=== PATIENT | male | born 1955 | race Caucasian/White ===

== ENCOUNTER 2016-09-16 14:34 | Inpatient (IN) | payer OTHER ==
[2016-09-16] MEDS ORDERED: DILTIAZEM 5 MG/ML 5 ML VIAL IVP STA (15:23)
--- NOTE | 2016-09-16 15:23 | ED ---
General Adult HPI - General Chief complaint: Chest Pain Stated complaint: chest pain needs O2 Time Seen by Provider: 09/16/16 14:57 Source: patient, family, RN notes reviewed, old records reviewed Mode of arrival: wheelchair Limitations: no limitations - History of Present Illness Initial comments: This is a 52-year-old male the ER for reevaluation chest pain shortness of breath. Patient presented with chest management with today as well as severe waking. Patient significant heart history and prior evaluations for similar symptoms. Patient states waking has been increasing, shortness of breath and chest pain getting worse. Patient is on Lasix and he is having decreased urinary output. No fevers. No cough, no congestion. No travel history no sick contacts. - Related Data Home Medications Medication Instructions Recorded Confirmed Atorvastatin [Lipitor] 40 mg PO DAILY 05/24/14 09/16/16 Budesonide-Formot 160-4.5 Mcg 2 puff INHALATION RT-BID 05/24/14 09/16/16 [Symbicort 160-4.5 Mcg Inhaler] Losartan Potassium [Cozaar] 100 mg PO DAILY 05/24/14 09/16/16 Omeprazole [PriLOSEC] 20 mg PO AC-BRKFST 05/24/14 09/16/16 DULoxetine HCL [Cymbalta] 60 mg PO BID 02/07/16 09/16/16 Ipratropium-Albuterol Nebulize 3 ml INHALATION RT-Q4H PRN 02/07/16 09/16/16 [Duoneb 0.5 mg-3 mg/3 ml Soln] Magnesium Oxide [Mag-Ox] 400 mg PO DAILY 02/07/16 09/16/16 Nicotine 21Mg/24Hr Patch [Habitrol] 1 patch TRANSDERM DAILY 02/07/16 09/16/16 Albuterol Nebulized [Ventolin 2.5 mg INHALATION RT-Q4H PRN 09/16/16 09/16/16 Nebulized] Furosemide [Lasix] 40 mg PO HS 09/16/16 09/16/16 Furosemide [Lasix] 80 mg PO QAM 09/16/16 09/16/16 Linagliptin [Tradjenta] 5 mg PO DAILY 09/16/16 09/16/16 Multivit-Min/FA/Lycopene/Lut 1 tab PO DAILY 09/16/16 09/16/16 [Centrum Silver Tablet] Warfarin Sodium 3 mg PO TH 09/16/16 09/16/16 Warfarin Sodium 6 mg PO SUMOTUWEFRSA 09/16/16 09/16/16 Previous Rx's Medication Instructions Recorded Carvedilol [Coreg] 3.125 mg PO BID-W/MEALS #60 tab 02/14/16 Allergies Allergy/AdvReac Type Severity Reaction Status Date / Time Penicillins Allergy Swelling Verified 09/16/16 14:48 THROAT, HIVES Sulfa (Sulfonamide Allergy Swelling Verified 09/16/16 14:48 Antibiotics) THROAT, HIVES venom-honey bee Allergy Anaphylaxis Verified 09/16/16 14:48 [bee venom (honey bee)] DUST Allergy Wheezing Uncoded 09/16/16 14:48 Review of Systems ROS Statement: Those systems with pertinent positive or pertinent negative responses have been documented in the HPI. ROS Other: All systems not noted in ROS Statement are negative. Past Medical History Past Medical History: Atrial Fibrillation, Asthma, Chest Pain / Angina, Heart Failure, COPD, Diabetes Mellitus, Deep Vein Thrombosis (DVT), GERD/Reflux, Hyperlipidemia, Hypertension, Myocardial Infarction ([place]), Pneumonia, Sleep Apnea /CPAP/BIPAP Additional Past Medical History / Comment(s): UNABLE TO USE TX FOR SLEEP APNEA. VARICOSE VEINS. HX DVT X2.ARTHRITIS,GOUT,"RSD-REFLEX SYMPATHETIC DSTROPY" CHRONIC PAIN,NUEROPATHY, HOME 02 3 LITERS N/C NEEDED Last Myocardial Infarction Date:: 2005? History of Any Multi-Drug Resistant Organisms: None Reported Past Surgical History: Heart Catheterization With Stent, Orthopedic Surgery, Tonsillectomy Additional Past Surgical History / Comment(s): HEART STENT X1. ORIF LT ANKLE( PLATE AND SCREWS), EGD,COLONOSCOPY, RT KNEE SX, NOT SURE IT THERES AN METAL IN THERE OR NOT Past Anesthesia/Blood Transfusion Reactions: No Reported Reaction Date of Last Stent Placement:: 2008 Past Psychological History: Unable to Obtain Additional Psychological History / Comment(s): LIVES WITH HIS SIG OTHER OF 33 YEARS,EYAL ELLIS Smoking Status: Former smoker Past Alcohol Use History: Heavy Additional Past Alcohol Use History / Comment(s): STARTED SMOKING AROUND THE AGE OF 18, HAD CUT DOWN TO 5 CIG PER DAY THEN QUIT FEW WEEKS AGO. PAST MEDICAL HX STATED" RECOVERING ALCOHOLIC" MANY YEARS AGO. Past Drug Use History: Marijuana Additional Drug Use History / Comment(s): MEDICAL MARIJANA-DAILY USE - Past Family History Father Family Medical History: Renal Disease Mother Family Medical History: Dementia General Exam Limitations: no limitations General appearance: alert, in no apparent distress, anxious, in distress, obese Head exam: Present: atraumatic, normocephalic, normal inspection Eye exam: Present: normal appearance, PERRL, EOMI. Absent: scleral icterus, conjunctival injection, periorbital swelling ENT exam: Present: normal exam, mucous membranes moist Neck exam: Present: normal inspection. Absent: tenderness, meningismus, lymphadenopathy Respiratory exam: Present: normal lung sounds bilaterally, rales, decreased breath sounds, prolonged expiratory. Absent: respiratory distress, wheezes, rhonchi, stridor Cardiovascular Exam: Present: regular rate, normal rhythm, normal heart sounds. Absent: systolic murmur, diastolic murmur, rubs, gallop, clicks GI/Abdominal exam: Present: soft, normal bowel sounds. Absent: distended, tenderness, guarding, rebound, rigid Extremities exam: Present: normal inspection, full ROM, normal capillary refill , pedal edema, joint swelling, other (Bilateral lower extremity edema 3+ pitting ). Absent: tenderness, calf tenderness Back exam: Present: normal inspection Neurological exam: Present: alert, oriented X3, CN II-XII intact Psychiatric exam: Present: normal affect, normal mood Skin exam: Present: warm, dry, intact, normal color. Absent: rash Course Vital Signs 09/16/16 09/16/16 09/16/16 14:43 15:10 15:37 Temperature 98.5 F Pulse Rate 74 56 L Respiratory 20 20 20 Rate Blood Pressure 151/82 102/66 O2 Sat by Pulse 94 L 98 Oximetry - Reevaluation(s) Reevaluation #1: 09/16/16 16:25 At this point patient is still a pain EKG Findings - EKG Comments: EKG Findings:: EKG shows A. fib with RVR rate 133, QRS 112, QTC 500 Medical Decision Making - Medical Decision Making 60 male here for evaluation of chest pain, shortness of breath, lower external swelling, weight gain. Patient is having increasing CHF, increasing renal failure, decreased urinary output and elevated troponin. Patient be admitted for cardiac evaluation and treatment, monitoring of troponin. Aggressive diuresis. In moderate of cardiopulmonary status - Lab Data Result diagrams: 09/16/16 15:05 09/16/16 15:05 Lab Results 09/16/16 09/16/16 09/16/16 Range/Units 15:05 15:05 15:05 WBC 11.3 H (3.8-10.6) k/uL RBC 4.21 L (4.30-5.90) m/uL Hgb 12.0 L (13.0-17.5) gm/dL Hct 39.2 (39.0-53.0) % MCV 93.1 (80.0-100.0) fL MCH 28.6 (25.0-35.0) pg MCHC 30.8 L (31.0-37.0) g/dL RDW 14.8 (11.5-15.5) % Plt Count 266 (150-450) k/uL Neutrophils % 79 % Lymphocytes % 10 % Monocytes % 8 % Eosinophils % 1 % Basophils % 1 % Neutrophils # 8.9 H (1.3-7.7) k/uL Lymphocytes # 1.2 (1.0-4.8) k/uL Monocytes # 1.0 (0-1.0) k/uL Eosinophils # 0.1 (0-0.7) k/uL Basophils # 0.1 (0-0.2) k/uL Hypochromasia Slight Sodium (137-145) mmol/L Potassium (3.5-5.1) mmol/L Chloride (98-107) mmol/L Carbon Dioxide (22-30) mmol/L Anion Gap mmol/L BUN (9-20) mg/dL Creatinine (0.66-1.25) mg/dL Est GFR (MDRD) Af Amer (>60 ml/min/1.73 sqM) Est GFR (MDRD) Non-Af (>60 ml/min/1.73 sqM) Glucose (74-99) mg/dL Plasma Lactic Acid Stef 1.5 (0.7-2.0) mmol/L Calcium (8.4-10.2) mg/dL Magnesium (1.6-2.3) mg/dL Total Bilirubin (0.2-1.3) mg/dL AST (17-59) U/L ALT (21-72) U/L Alkaline Phosphatase (38-126) U/L Total Creatine Kinase 103 (55-170) U/L CK-MB (CK-2) 1.5 (0.0-2.4) ng/mL CK-MB (CK-2) Rel Index 1.5 Troponin I 0.088 H* (0.000-0.034) ng/mL NT-Pro-B Natriuret Pep pg/mL Total Protein (6.3-8.2) g/dL Albumin (3.5-5.0) g/dL Lipase (23-300) U/L 09/16/16 09/16/16 Range/Units 15:05 15:05 WBC (3.8-10.6) k/uL RBC (4.30-5.90) m/uL Hgb (13.0-17.5) gm/dL Hct (39.0-53.0) % MCV (80.0-100.0) fL MCH (25.0-35.0) pg MCHC (31.0-37.0) g/dL RDW (11.5-15.5) % Plt Count (150-450) k/uL Neutrophils % % Lymphocytes % % Monocytes % % Eosinophils % % Basophils % % Neutrophils # (1.3-7.7) k/uL Lymphocytes # (1.0-4.8) k/uL Monocytes # (0-1.0) k/uL Eosinophils # (0-0.7) k/uL Basophils # (0-0.2) k/uL Hypochromasia Sodium 142 (137-145) mmol/L Potassium 3.9 (3.5-5.1) mmol/L Chloride 96 L (98-107) mmol/L Carbon Dioxide 33 H (22-30) mmol/L Anion Gap 13 mmol/L BUN 30 H (9-20) mg/dL Creatinine 1.31 H (0.66-1.25) mg/dL Est GFR (MDRD) Af Amer >60 (>60 ml/min/1.73 sqM) Est GFR (MDRD) Non-Af 56 (>60 ml/min/1.73 sqM) Glucose 165 H (74-99) mg/dL Plasma Lactic Acid Stef (0.7-2.0) mmol/L Calcium 8.8 (8.4-10.2) mg/dL Magnesium 1.6 (1.6-2.3) mg/dL Total Bilirubin 0.6 (0.2-1.3) mg/dL AST 27 (17-59) U/L ALT 36 (21-72) U/L Alkaline Phosphatase 110 (38-126) U/L Total Creatine Kinase (55-170) U/L CK-MB (CK-2) (0.0-2.4) ng/mL CK-MB (CK-2) Rel Index Troponin I (0.000-0.034) ng/mL NT-Pro-B Natriuret Pep 8340 pg/mL Total Protein 6.4 (6.3-8.2) g/dL Albumin 3.3 L (3.5-5.0) g/dL Lipase 12 L (23-300) U/L - Radiology Data Radiology results: report reviewed (Chest x-ray two-view is positive for CHF), image reviewed Critical Care Time Critical Care Time: Yes Total Critical Care Time: 31 Disposition Clinical Impression: Fluid overload, Lower extremity edema, CHF (congestive heart failure), Chest pain, Unstable angina pectoris, Acute non-ST segment elevation myocardial infarction (STEMI) following previous myocardial infarction Disposition: ADMITTED IP TO THIS HOSP Condition: Fair Referrals: Bipin Wills MD [Primary Care Provider] - 1-2 days
[2016-09-16 15:24] LABS: Basophils # (A) 0.1 k/uL (0-0.2); Basophils % (A) 1 %; CH 29.3; CHCM 31.5; Eosinophils # (A) 0.1 k/uL (0-0.7); Eosinophils % (A) 1 %; HCT 39.2 % (39.0-53.0); Hypochromasia Slight; Luc # (Auto) 0.12; Luc % (Auto) 1; Lymphocytes # (A) 1.2 k/uL (1.0-4.8); Lymphocytes % (A) 10 %; MCH 28.6 pg (25.0-35.0); MCHC 30.8 g/dL (31.0-37.0); MCV 93.1 fL (80.0-100.0); Monocytes % (A) 8 %; Neutrophils # (A) 8.9 k/uL (1.3-7.7); Neutrophils % (A) 79 %; RBC 4.21 m/uL (4.30-5.90); RDW 14.8 % (11.5-15.5); WBC 11.3 k/uL (3.8-10.6)
[2016-09-16 15:43] LABS: ALT 36 U/L (21-72); AST 27 U/L (17-59); Alkaline Phosphatase 110 U/L (38-126); Anion Gap 13 mmol/L; Blood Urea Nitrogen 30 mg/dL (9-20); Calcium 8.8 mg/dL (8.4-10.2); Carbon Dioxide 33 mmol/L (22-30); Chloride 96 mmol/L (98-107); Glucose 165 mg/dL (74-99); Magnesium 1.6 mg/dL (1.6-2.3); Non-African American GFR(MDRD) 56 (>60 ml/min/1.73 sqM); Potassium 3.9 mmol/L (3.5-5.1); Sodium 142 mmol/L (137-145); Total Bilirubin 0.6 mg/dL (0.2-1.3); Total Protein 6.4 g/dL (6.3-8.2)
--- NOTE | 2016-09-16 15:48 | XR ---
EXAMINATION TYPE: XR chest 2V DATE OF EXAM: 09/16/2016 3:26 PM COMPARISON: Prior chest x-ray February 2016 HISTORY: Chest pain, irregular heartbeat TECHNIQUE: Frontal and lateral views of the chest are obtained on 3 images. FINDINGS: Central vascularity and interstitium are somewhat increased. No pneumothorax or sizable pl eural effusion evident. Blunting of the posterior costophrenic sulcus may be due to minimal pleural f luid or pleural reaction The heart is enlarged. Central venous catheter has been removed. IMPRESSION: Findings suggest pulmonary venous hypertension and interstitial edema. Follow-up suggest ed.
[2016-09-16 15:56] LABS: Creatine Kinase MB 1.5 ng/mL (0.0-2.4)
[2016-09-16 16:02] LABS: Troponin I 0.088 ng/mL (0.000-0.034)
[2016-09-16 16:29] LABS: Partial Thromboplastin Time 37.3 sec (22.0-30.0); Prothrombin Time 71.7 sec (9.0-12.0)
[2016-09-16] MEDS ORDERED: WARFARIN 3 MG TAB PO SCH (18:00)
[2016-09-16] MEDS ORDERED: ALBUTEROL NEBULIZED 2.5 MG/3 ML INHALATION PRN (20:04)
[2016-09-16] MEDS: DULoxetine HCL 60 MG CAPSULE.DR PO SCH (22:50)
[2016-09-16] MEDS: NICOTINE 21MG/24HR PATCH TRANSDERM SCH (22:50)
[2016-09-16] MEDS: FUROSEMIDE 10 MG/ML 4 ML VIAL IV SCH (22:50)
[2016-09-16] MEDS: IPRATROPIUM-ALBUTEROL 3 ML NEB INHALATION PRN (23:33)
[2016-09-17 05:54] LABS: CH 28.7; CHCM 30.4; HCT 41.6 % (39.0-53.0); HDW 2.91; HGB 12.9 gm/dL (13.0-17.5); Hypochromasia Marked; MCH 29.2 pg (25.0-35.0); MCHC 30.9 g/dL (31.0-37.0); MCV 94.6 fL (80.0-100.0); Mean Platelet Volume 6.7; RDW 14.5 % (11.5-15.5); WBC 11.4 k/uL (3.8-10.6)
[2016-09-17 06:05] LABS: Anion Gap 15 mmol/L; Blood Urea Nitrogen 34 mg/dL (9-20); Calcium 9.2 mg/dL (8.4-10.2); Carbon Dioxide 28 mmol/L (22-30); Chloride 100 mmol/L (98-107); Glucose 135 mg/dL (74-99); Non-African American GFR(MDRD) 53 (>60 ml/min/1.73 sqM); Potassium 4.6 mmol/L (3.5-5.1); Sodium 143 mmol/L (137-145)
[2016-09-17] MEDS ORDERED: CARVEDILOL 3.125 MG TAB PO SCH (07:30)
[2016-09-17] MEDS: IPRATROPIUM-ALBUTEROL 3 ML NEB INHALATION PRN (08:02)
[2016-09-17] MEDS: SYMBICORT 160-4.5 MCG INHALER INHALATION SCH ×2 (08:03→20:26)
[2016-09-17] MEDS: PANTOPRAZOLE 40 MG TABLET PO SCH (08:06)
[2016-09-17] MEDS: FUROSEMIDE 10 MG/ML 4 ML VIAL IV SCH ×2 (08:06→16:28)
[2016-09-17] MEDS: LOSARTAN 50 MG TAB PO SCH (08:31)
[2016-09-17] MEDS: MAGNESIUM OXIDE 400 MG TAB PO SCH (08:31)
[2016-09-17] MEDS: DULoxetine HCL 60 MG CAPSULE.DR PO SCH ×2 (08:31→20:52)
[2016-09-17] MEDS: ATORVASTATIN 40 MG TAB PO SCH (08:31)
[2016-09-17] MEDS: NICOTINE 21MG/24HR PATCH TRANSDERM SCH (08:31)
[2016-09-17] MEDS: LINAGLIPTIN 5 MG TABLET PO SCH (08:31)
[2016-09-17 08:37] LABS: Prothrombin Time 78.9 sec (9.0-12.0)
[2016-09-17 08:46] LABS: INR 7.6 (<1.1)
--- NOTE | 2016-09-17 09:15 | P.CRDCN ---
History of Present Illness Consult date: 09/17/16 Chief complaint: Progressive dyspnea History of present illness: This is a pleasant 60-year-old gentleman who sees Dr. Ayers as an outpatient with a past medical history significant for CAD and prior stenting, unknown left ventricular systolic function, congestive heart failure, chronic atrial fibrillation, as well as multiple comorbid conditions presented to the emergency room with exertional dyspnea. He describes progressive exertional dyspnea started about 4 days ago. Also he describes orthopnea. The patient gained significant amount of weight over the last 4 days and he noticed abdominal distention and severe bilateral lower extremities edema. He did not have any symptoms of chest pain or chest discomfort. The details regarding his coronary artery stenting are unknown at this point. On physical examination he has bilateral expiratory wheezing and severity bilateral lower extremities edema along with chronic skin changes. The EKG showed atrial fibrillation with diffuse nonspecific ST and T wave abnormalities. The cardiac enzymes came in to be slightly abnormal but does not consistent with acute TX. The patient was started on IV Lasix which we will continue. We'll obtain an echocardiogram was Doppler if there was no echo was performed recently. Continue monitor the kidney function and electrolytes. Monitor the INR. Follow -up with him Past Medical History Past Medical History: Atrial Fibrillation, Asthma, Chest Pain / Angina, Heart Failure, COPD, Diabetes Mellitus, Deep Vein Thrombosis (DVT), GERD/Reflux, Hyperlipidemia, Hypertension, Myocardial Infarction ([place]), Pneumonia, Sleep Apnea /CPAP/BIPAP Additional Past Medical History / Comment(s): UNABLE TO USE TX FOR SLEEP APNEA. VARICOSE VEINS. HX DVT X2.ARTHRITIS,GOUT,"RSD-REFLEX SYMPATHETIC DSTROPY" CHRONIC PAIN,NUEROPATHY, HOME 02 3 LITERS N/C NEEDED Last Myocardial Infarction Date:: 2005? History of Any Multi-Drug Resistant Organisms: None Reported Past Surgical History: Heart Catheterization With Stent, Orthopedic Surgery, Tonsillectomy Additional Past Surgical History / Comment(s): HEART STENT X1. ORIF LT ANKLE( PLATE AND SCREWS), EGD,COLONOSCOPY, RT KNEE SX, NOT SURE IT THERES AN METAL IN THERE OR NOT Past Anesthesia/Blood Transfusion Reactions: No Reported Reaction Date of Last Stent Placement:: 2008 Past Psychological History: No Psychological Hx Reported Additional Psychological History / Comment(s): LIVES WITH HIS SIG OTHER OF 33 YEARS,EYAL ELLIS Smoking Status: Former smoker Past Alcohol Use History: Heavy Additional Past Alcohol Use History / Comment(s): STARTED SMOKING AROUND THE AGE OF 18, HAD CUT DOWN TO 5 CIG PER DAY THEN QUIT FEW WEEKS AGO. PAST MEDICAL HX STATED" RECOVERING ALCOHOLIC" MANY YEARS AGO. Past Drug Use History: Marijuana Additional Drug Use History / Comment(s): MEDICAL MARIJANA-DAILY USE - Past Family History Father Family Medical History: Congestive Heart Failure (CHF), Renal Disease Mother Family Medical History: Dementia Medications and Allergies Home Medications Medication Instructions Recorded Confirmed Type Atorvastatin [Lipitor] 40 mg PO DAILY 05/24/14 09/16/16 History Budesonide-Formot 160-4.5 Mcg 2 puff INHALATION RT-BID 05/24/14 09/16/16 History [Symbicort 160-4.5 Mcg Inhaler] Losartan Potassium [Cozaar] 100 mg PO DAILY 05/24/14 09/16/16 History Omeprazole [PriLOSEC] 20 mg PO AC-BRKFST 05/24/14 09/16/16 History DULoxetine HCL [Cymbalta] 60 mg PO BID 02/07/16 09/16/16 History Ipratropium-Albuterol Nebulize 3 ml INHALATION RT-Q4H PRN 02/07/16 09/16/16 History [Duoneb 0.5 mg-3 mg/3 ml Soln] Magnesium Oxide [Mag-Ox] 400 mg PO DAILY 02/07/16 09/16/16 History Nicotine 21Mg/24Hr Patch [Habitrol] 1 patch TRANSDERM DAILY 02/07/16 09/16/16 History Albuterol Nebulized [Ventolin 2.5 mg INHALATION RT-Q4H PRN 09/16/16 09/16/16 History Nebulized] Furosemide [Lasix] 40 mg PO HS 09/16/16 09/16/16 History Furosemide [Lasix] 80 mg PO QAM 09/16/16 09/16/16 History Linagliptin [Tradjenta] 5 mg PO DAILY 09/16/16 09/16/16 History Multivit-Min/FA/Lycopene/Lut 1 tab PO DAILY 09/16/16 09/16/16 History [Centrum Silver Tablet] Warfarin Sodium 3 mg PO TH 09/16/16 09/16/16 History Warfarin Sodium 6 mg PO SUMOTUWEFRSA 09/16/16 09/16/16 History Allergies Allergy/AdvReac Type Severity Reaction Status Date / Time Penicillins Allergy Swelling Verified 09/16/16 14:48 THROAT, HIVES Sulfa (Sulfonamide Allergy Swelling Verified 09/16/16 14:48 Antibiotics) THROAT, HIVES venom-honey bee Allergy Anaphylaxis Verified 09/16/16 14:48 [bee venom (honey bee)] DUST Allergy Wheezing Uncoded 09/16/16 14:48 Physical Exam Vitals: Vital Signs Temp Pulse Pulse Resp BP BP Pulse Ox 09/17/16 08:23 126 H 09/17/16 08:02 130 H 09/17/16 08:00 97.4 F L 127 H 144/88 99 09/17/16 03:46 62 18 09/17/16 03:45 98.2 F 62 18 78/66 97 09/17/16 00:00 98.2 F 63 18 118/77 99 09/16/16 23:43 84 09/16/16 23:36 82 09/16/16 20:10 82 18 109/68 96 09/16/16 19:59 98.0 F 62 18 108/82 98 09/16/16 18:50 84 18 102/67 96 09/16/16 17:17 51 L 18 100/76 98 Intake and Output 09/16/16 09/17/16 09/17/16 22:59 06:59 14:59 Intake Total 120 Output Total 900 Balance 120 -900 Intake: Oral 120 Output: Urine 900 Other: Voiding Method Indwelling Catheter Weight 140.614 kg - Constitutional General appearance: no acute distress - Respiratory Respiratory: bilateral: wheezing - Cardiovascular Rhythm: irregularly irregular Heart sounds: normal: S1, S2 Results 09/17/16 05:26 09/17/16 05:26 Cardiac Enzymes 09/16/16 09/17/16 Range/Units 21:07 05:26 Troponin I 0.097 H* 0.097 H* (0.000-0.034) ng/mL Coagulation 09/17/16 Range/Units 08:15 PT 78.9 H (9.0-12.0) sec CBC 09/17/16 Range/Units 05:26 WBC 11.4 H (3.8-10.6) k/uL RBC 4.40 (4.30-5.90) m/uL Hgb 12.9 L (13.0-17.5) gm/dL Hct 41.6 (39.0-53.0) % Plt Count 270 (150-450) k/uL Comprehensive Metabolic Panel 09/17/16 Range/Units 05:26 Sodium 143 (137-145) mmol/L Potassium 4.6 (3.5-5.1) mmol/L Chloride 100 (98-107) mmol/L Carbon Dioxide 28 (22-30) mmol/L BUN 34 H (9-20) mg/dL Creatinine 1.38 H (0.66-1.25) mg/dL Glucose 135 H (74-99) mg/dL Calcium 9.2 (8.4-10.2) mg/dL Current Medications Generic Name Dose Route Start Last Admin Trade Name Freq PRN Reason Stop Dose Admin Albuterol/Ipratropium 3 ml 09/16/16 20:04 09/17/16 08:02 Duoneb 0.5 Mg-3 Mg/3 Ml Soln INHALATION 3 ml RT-Q4H PRN Administration Shortness Of Breath Atorvastatin Calcium 40 mg 09/17/16 09:00 09/17/16 08:31 Lipitor PO 40 mg DAILY WILLY Administration Budesonide/Formoterol Fumarate 2 puff 09/17/16 08:00 09/17/16 08:03 Symbicort 160-4.5 Mcg Inhaler INHALATION 2 puff RT-BID WILLY Administration Carvedilol 3.125 mg 09/17/16 07:30 09/17/16 08:06 Coreg PO 3.125 mg BID-W/MEALS WILLY Administration Duloxetine HCl 60 mg 09/16/16 21:00 09/17/16 08:31 Cymbalta PO 60 mg BID WILLY Administration Furosemide 40 mg 09/16/16 17:30 09/17/16 08:06 Lasix IV 40 mg Q12H WILLY Administration Linagliptin 5 mg 09/17/16 09:00 09/17/16 08:31 Tradjenta PO 5 mg DAILY WILLY Administration Losartan Potassium 100 mg 09/17/16 09:00 09/17/16 08:31 Cozaar PO 100 mg DAILY WILLY Administration Magnesium Oxide 400 mg 09/17/16 09:00 09/17/16 08:31 Mag-Ox PO 400 mg DAILY WILLY Administration Nicotine 1 patch 09/16/16 20:15 09/17/16 08:31 Habitrol 21mg/24hr Patch TRANSDERM 1 patch DAILY WILLY Administration Pantoprazole Sodium 40 mg 09/17/16 07:30 09/17/16 08:06 Protonix PO 40 mg AC-BRKFST WILLY Administration Intake and Output 09/16/16 09/17/16 09/17/16 22:59 06:59 14:59 Intake Total 120 Output Total 900 Balance 120 -900 Intake: Oral 120 Output: Urine 900 Other: Voiding Method Indwelling Catheter Weight 140.614 kg 09/17/16 05:26 09/17/16 05:26 Assessment and Plan Plan: Assessment #1 acute exacerbation of congestive heart failure and known if it's systolic or diastolic at this point #2 chronic atrial fibrillation with relatively controlled heart rate #3 mildly abnormal cardiac enzymes does not reflect acute TX #4 known CAD with a prior stenting with unknown details at this point #5 supratherapeutic INR #6 morbid obesity Plan #1 continue the current dose of Lasix along with monitoring the kidney function #2 continue holding the Coumadin and monitor the INR #3 obtain an echocardiogram with Doppler #4 repeat the BNP tomorrow #5 follow-up with the patient
--- NOTE | 2016-09-17 09:24 | US ---
EXAMINATION TYPE: US venous doppler duplex LE DATE OF EXAM: 09/17/2016 9:01 AM COMPARISON: NONE CLINICAL HISTORY: Patient has history of DVT, he has extensive bilateral leg swelling with pitting ed mohinder, patient is also morbidly obese, exam very limited with extreme technical difficulties. SIDE PERFORMED: Bilaterally TECHNOLOGIST IMPRESSION: VESSELS IMAGED: External Iliac Vein (EIV) Seen in color, unable to view for compression bilaterally Common Femoral Vein Seen only in color on right Deep Femoral Vein Greater Saphenous Vein * Femoral Vein on right unable to see distally for color or for mid and distal for compression, seen on ly proximally on left Popliteal Vein Small Saphenous Vein * Proximal Calf Veins -not seen bilaterally (* superficial vessels) Right Leg: No DVT seen, study has extreme limitations. Left Leg: No DVT seen, study has extreme limitations. IMPRESSION: 1. No evidence of proximal DVT as visualized. Exam is extremely limited as noted by the technologist. Particular limitation to the mid and distal superficial femoral vein. Calf veins are not demonstrate d.
[2016-09-17] MEDS ORDERED: CARVEDILOL 3.125 MG TAB PO STA (09:55)
[2016-09-17 11:27] LABS: Glucose,Whole Blood 165 mg/dL (75-99)
[2016-09-17] MEDS ORDERED: PHYTONADIONE ORAL 5 MG/5 ML ORAL.SYRG PO STA (14:18)
[2016-09-17] MEDS: INSULIN LISPRO (humaLOG) 300 UNIT/3 ML VIAL SQ SCH ×3 (14:32→20:52)
--- NOTE | 2016-09-17 16:14 | HP ---
DATE OF ADMISSION: 09/16/2016 PRESENTING COMPLAINT: Short of breath. HISTORY OF PRESENTING COMPLAINT: This is a 60-year-old patient of Dr. Wills with a rather extensive medical history. His chronic medical conditions include COPD, congestive heart failure, diabetes mellitus, type 2, GERD, hyperlipidemia, hypertension, sleep apnea, osteoarthritis, reflex sympathetic dystrophic and chronic pain, coronary artery disease. Patient presents with worsening shortness of breath coming on; found to be in congestive heart failure in the ER. Patient has a cough with garcia sputum coming on and also was found to be in atrial fibrillation with rapid ventricular rate. REVIEW OF SYSTEMS: CONSTITUTIONAL: Weak, tired. HEENT: None. RESPIRATORY: As above. CARDIOVASCULAR: As above. GASTROINTESTINAL: None. GENITOURINARY: None. MUSCULOSKELETAL: Aches and pains in joints. DERMATOLOGICAL: Chronic skin changes, especially in the lower extremities. HEMATOLOGICAL: None. LYMPHATICS: None. PSYCHIATRY: None. NEUROLOGICAL: Numbness and tingling and chronic pain. PAST MEDICAL HISTORY: 1. Atrial fibrillation. 2. Heart failure; ejection fraction is low. 3. COPD. 4. Diabetes mellitus, type 2. 5. DVT. 6. GERD. 7. Hyperlipidemia. 8. Hypertension. 9. Coronary artery disease. 10. Sleep apnea; does not use CPAP machine. 11. Varicose veins. 12. History of DVT x2. 13. Arthritis. 14. Gout. 15. Reflex sympathetic dystrophy. 16. Chronic pain. 17. Peripheral neuropathy. 18. Home oxygen 3 L. PAST SURGICAL HISTORY: 1. Cardiac catheterization with stent. 2. Tonsillectomy. 3. ORIF of the left ankle with plate and screws. 4. Right knee surgery. SOCIAL HISTORY: Lives with a partner of 33 years of age Shania Leone. Patient has been smoking for over 40 years; now down to a few cigarettes a day. Patient stopped drinking alcohol many years ago but did drink excessively. Patient smokes medical marijuana sometimes. FAMILY HISTORY: Renal disease. ALLERGIES: 1. BEE VENOM. 2. PENICILLIN. 3. SULFA. 4. DUST. HOME MEDICATIONS: 1. Prilosec 20 mg with breakfast. 2. Tradjenta 5 mg p.o. daily. 3. Ventolin 2.5 nebulizer q.4 p.r.n. 4. Lasix 40 mg at bedtime. 5. Cymbalta 60 mg p.o. b.i.d. 6. Coreg 3.125 p.o. b.i.d. with meals. 7. Symbicort 160/4.5 two puffs b.i.d. 8. Lipitor 40 mg p.o. daily. 9. DuoNeb q.4 p.r.n. 10. Lasix 80 mg p.o. daily. 11. Nicotine 20 mg patch daily. 12. Centrum Silver 1 tablet p.o. daily. 13. Magnesium oxide 400 mg p.o. daily. 14. Cozaar 100 mg p.o. daily. 15. Coumadin 6 mg on Friday, Friday, Friday, Friday, Friday, Friday; and 3 mg on . PHYSICAL EXAMINATION: VITAL SIGNS ON PRESENTATION: Temperature 98.5. Pulse went up to 130. Respiration 22, blood pressure 144/88, pulse ox 99% on 3 L. GENERAL APPEARANCE: Morbidly obese; BMI of 44.5. Lethargic but awake. Short of breath at rest. EYES: Pupils equal. Conjunctivae normal. HEENT: External appearance of nose and ears normal. Oral cavity normal. NECK: Short, thick. JVD unable to assess. Mass not palpable. RESPIRATORY: Effort increased. LUNGS: Diminished breath sounds. Prolonged expiration. CARDIOVASCULAR: Heart sounds muffled. Edema present. ABDOMEN: Distended, soft. Liver and spleen not palpable. LYMPHATIC: No lymph node palpable in neck or axillae. PSYCHIATRY: Lethargic but able to answer questions. EXTREMITIES: Chronic skin changes in lower extremities with chronic scarring on the left lower extremity. INVESTIGATIONS: White count 11.3, hemoglobin 12. INR is 7. Potassium 3.9. BUN 30, creatinine 1.31. Troponin 0.088. Patient's creatinine on 02/12/16 was 1.10. Chest x-ray reviewed by me; shows some edema, questionable infiltrate. EKG shows atrial fibrillation with rapid ventricular rate. Patient's 2-D echocardiogram from February of this year shows EF of 45% to 50%. ASSESSMENT: 1. Acute on chronic congestive heart failure exacerbation from systolic and diastolic dysfunction; ejection fraction 45% to 50%; secondary to underlying coronary artery disease. 2. Persistent atrial fibrillation with rapid ventricular rate, present on admission. 3. Acute chronic obstructive pulmonary disease exacerbation in an active smoker. 4. Chronic nicotine dependence. Patient is an active cigarette smoker. 5. Diabetes mellitus, type 2. 6. Gastroesophageal reflux disease. 7. Hyperlipidemia. 8. Essential hypertension. 9. Sleep apnea; does not use CPAP machine. 10. Primary osteoarthritis in multiple joints. 11. Chronic reflex sympathetic dystrophy with chronic pain. 12. Peripheral neuropathy secondary to diabetes mellitus, type 2. 13. Coronary artery disease with prior history of stent. 14. Coumadin monitoring with Coumadin toxicity; no evidence of bleeding. 15. Troponin leak in the setting of some renal failure and hemodynamic mismatch. 16. Possible pneumonia on the right side. Patient is bringing up garcia sputum. Consider Gram-negative organism. PLAN: Patient was started on IV Lasix. Home medications are resumed. Patient was put on nicotine patch, nebulized bronchodilator. Cardiology and Pulmonary are consulted. Patient advised against smoking.
[2016-09-17] MEDS: IPRATROPIUM-ALBUTEROL 3 ML NEB INHALATION SCH ×3 (16:28→20:26)
[2016-09-17] MEDS: LEVOFLOXACIN 500 MG TAB PO SCH (16:28)
[2016-09-17] MEDS: CARVEDILOL 6.25 MG TAB PO SCH (16:29)
[2016-09-17 17:14] LABS: Glucose,Whole Blood 178 mg/dL (75-99)
[2016-09-17 20:39] LABS: Glucose,Whole Blood 133 mg/dL (75-99)
[2016-09-17 23:27] LABS: Hemoglobin A1C 7.1 % (4.2-6.1)
[2016-09-18] MEDS: HYDROcodone/APAP 5-325MG 1 EACH TAB PO PRN ×4 (00:19→23:29)
[2016-09-18] MEDS: IPRATROPIUM-ALBUTEROL 3 ML NEB INHALATION SCH ×6 (00:50→21:08)
[2016-09-18] MEDS: FUROSEMIDE 10 MG/ML 4 ML VIAL IV SCH ×2 (06:11→17:47)
[2016-09-18] MEDS: CARVEDILOL 6.25 MG TAB PO SCH ×2 (06:11→17:46)
[2016-09-18] MEDS: PANTOPRAZOLE 40 MG TABLET PO SCH (06:11)
[2016-09-18] MEDS: NICOTINE 21MG/24HR PATCH TRANSDERM SCH ×2 (06:12→12:37)
[2016-09-18 06:48] LABS: Anion Gap 12 mmol/L; Carbon Dioxide 28 mmol/L (22-30); Chloride 101 mmol/L (98-107); Glucose 123 mg/dL (74-99); Non-African American GFR(MDRD) 57 (>60 ml/min/1.73 sqM); Sodium 141 mmol/L (137-145)
[2016-09-18 06:51] LABS: Blood Urea Nitrogen 34 mg/dL (9-20); Potassium 4.3 mmol/L (3.5-5.1)
[2016-09-18 06:52] LABS: Prothrombin Time 53.1 sec (9.0-12.0)
[2016-09-18 07:09] LABS: INR 5.3 (<1.1)
[2016-09-18 07:11] LABS: Glucose,Whole Blood 122 mg/dL (75-99)
[2016-09-18] MEDS: SYMBICORT 160-4.5 MCG INHALER INHALATION SCH ×2 (08:37→21:08)
[2016-09-18] MEDS: INSULIN LISPRO (humaLOG) 300 UNIT/3 ML VIAL SQ SCH ×4 (09:32→20:54)
[2016-09-18] MEDS: LINAGLIPTIN 5 MG TABLET PO SCH (09:33)
[2016-09-18] MEDS: DULoxetine HCL 60 MG CAPSULE.DR PO SCH ×2 (09:33→20:54)
[2016-09-18] MEDS: ATORVASTATIN 40 MG TAB PO SCH (09:33)
[2016-09-18] MEDS: MAGNESIUM OXIDE 400 MG TAB PO SCH (09:34)
--- NOTE | 2016-09-18 11:13 | P.CNPUL ---
History of Present Illness Consult date: 09/18/16 Reason for consult: dyspnea History of present illness: This is a pleasant 60-year-old gentleman with a past medical history significant for CAD and prior stenting, COPD, congestive heart failure which has been essentially diastolic dysfunction and based on the previous echocardiogram the patient has an ejection fraction of 35-40%, chronic atrial fibrillation, as well as multiple comorbid conditions presented to the emergency room with exertional dyspnea. He describes progressive exertional dyspnea started about 4 days ago. Also he describes orthopnea. The patient gained significant amount of weight over the last 4 days and he noticed abdominal distention and severe bilateral lower extremities edema. He also had a congested cough with some limited amount of sputum production. No chest pain. No fever. No chills. No change in mental status. The patient presented to the hospital where he was found to have acute CHF and acute COPD exacerbation. His chest x-ray showed pulmonary edema. Overnight he was started on IV diuretics and responded nicely to Lasix and this morning is feeling much more comfortable. He is on oxygen at 2 L/m nasal cannula. ProBNP was in the 8000 range. The patient had a limited troponin leak and cardiology will be also evaluating this patient. Note that the patient's was in the hospital in February 2016 for complications of acute hypoxic and hypercapnic respiratory failure. Back then he briefly went into third-degree AV block from which she recovered. He is on oxygen at home at 2 L. He has been diagnosed having obstructive sleep apnea. He has been able to tolerate the treatment and as such she has not been receiving any treatment regarding his JOSELYN. His other comorbid conditions include hypertension, diabetes mellitus, remote history of DVT, hyperlipidemia and chronic renal failure. Review of Systems Full review of system was done and the positive findings almost above history of present illness Past Medical History Past Medical History: Atrial Fibrillation, Asthma, Chest Pain / Angina, Heart Failure, COPD, Diabetes Mellitus, Deep Vein Thrombosis (DVT), GERD/Reflux, Hyperlipidemia, Hypertension, Myocardial Infarction ([place]), Pneumonia, Sleep Apnea /CPAP/BIPAP Additional Past Medical History / Comment(s): COPD, obstructive sleep apnea nontolerant to CPAP therapy, diabetes mellitus, chronic atrial fibrillation, hypertension, hyperlipidemia, previous myocardial infarction, remote history of a DVT of the lower extremity, CHF with an ejection fraction of 35-40% based on echocardiogram from February 2016, varicose veins and chronic venous stasis involving the lower extremities, osteoarthritis, gout, ReFlex sympathetic dystrophy, obesity, peripheral neuropathy, chronic pain, chronic hypoxic respiratory failure Last Myocardial Infarction Date:: 2005? History of Any Multi-Drug Resistant Organisms: None Reported Past Surgical History: Heart Catheterization With Stent, Orthopedic Surgery, Tonsillectomy Additional Past Surgical History / Comment(s): HEART STENT X1. ORIF LT ANKLE( PLATE AND SCREWS), EGD,COLONOSCOPY, RT KNEE SX, NOT SURE IT THERES AN METAL IN THERE OR NOT Past Anesthesia/Blood Transfusion Reactions: No Reported Reaction Date of Last Stent Placement:: 2008 Past Psychological History: No Psychological Hx Reported Additional Psychological History / Comment(s): LIVES WITH HIS SIG OTHER OF 33 YEARS,EYAL ELLIS Smoking Status: Former smoker Past Alcohol Use History: Heavy Additional Past Alcohol Use History / Comment(s): STARTED SMOKING AROUND THE AGE OF 18, HAD CUT DOWN TO 5 CIG PER DAY THEN QUIT FEW WEEKS AGO. PAST MEDICAL HX STATED" RECOVERING ALCOHOLIC" MANY YEARS AGO. Past Drug Use History: Marijuana Additional Drug Use History / Comment(s): MEDICAL MARIJANA-DAILY USE - Past Family History Father Family Medical History: Congestive Heart Failure (CHF), Renal Disease Mother Family Medical History: Dementia Medications and Allergies Home Medications Medication Instructions Recorded Confirmed Type Atorvastatin [Lipitor] 40 mg PO DAILY 05/24/14 09/16/16 History Budesonide-Formot 160-4.5 Mcg 2 puff INHALATION RT-BID 05/24/14 09/16/16 History [Symbicort 160-4.5 Mcg Inhaler] Losartan Potassium [Cozaar] 100 mg PO DAILY 05/24/14 09/16/16 History Omeprazole [PriLOSEC] 20 mg PO AC-BRKFST 05/24/14 09/16/16 History DULoxetine HCL [Cymbalta] 60 mg PO BID 02/07/16 09/16/16 History Ipratropium-Albuterol Nebulize 3 ml INHALATION RT-Q4H PRN 02/07/16 09/16/16 History [Duoneb 0.5 mg-3 mg/3 ml Soln] Magnesium Oxide [Mag-Ox] 400 mg PO DAILY 02/07/16 09/16/16 History Nicotine 21Mg/24Hr Patch [Habitrol] 1 patch TRANSDERM DAILY 02/07/16 09/16/16 History Albuterol Nebulized [Ventolin 2.5 mg INHALATION RT-Q4H PRN 09/16/16 09/16/16 History Nebulized] Furosemide [Lasix] 40 mg PO HS 09/16/16 09/16/16 History Furosemide [Lasix] 80 mg PO QAM 09/16/16 09/16/16 History Linagliptin [Tradjenta] 5 mg PO DAILY 09/16/16 09/16/16 History Multivit-Min/FA/Lycopene/Lut 1 tab PO DAILY 09/16/16 09/16/16 History [Centrum Silver Tablet] Warfarin Sodium 3 mg PO TH 09/16/16 09/16/16 History Warfarin Sodium 6 mg PO SUMOTUWEFRSA 09/16/16 09/16/16 History Allergies Allergy/AdvReac Type Severity Reaction Status Date / Time Penicillins Allergy Swelling Verified 09/16/16 14:48 THROAT, HIVES Sulfa (Sulfonamide Allergy Swelling Verified 09/16/16 14:48 Antibiotics) THROAT, HIVES venom-honey bee Allergy Anaphylaxis Verified 09/16/16 14:48 [bee venom (honey bee)] DUST Allergy Wheezing Uncoded 09/16/16 14:48 Physical Exam Vitals: Vital Signs Temp Pulse Pulse Resp BP BP Pulse Ox 09/18/16 08:48 102 H 09/18/16 08:38 104 H 09/18/16 08:00 97.1 F L 120 H 18 88/63 95 09/18/16 04:07 99 09/18/16 03:54 117 H 09/18/16 03:50 96.5 F L 126 H 20 101/74 98 09/18/16 00:58 88 09/18/16 00:50 98 09/18/16 00:00 98.2 F 95 20 104/60 96 09/17/16 21:40 96.8 F L 104 H 18 111/66 100 09/17/16 20:42 106 H 09/17/16 20:26 101 H 09/17/16 20:00 97.5 F L 99 106 H 20 98/59 106/75 98 09/17/16 18:00 105 H 20 94/70 09/17/16 16:43 119 H 09/17/16 16:28 118 H 09/17/16 16:00 98.4 F 102 H 127 H 18 94/70 98 09/17/16 15:00 108 H 19 09/17/16 14:00 145 H 48 H 100/65 09/17/16 13:00 95 16 100/65 98 09/17/16 12:30 114 H 34 H 96 09/17/16 12:20 112 H 25 H 98 09/17/16 12:10 97 F L 105 H 25 H 100/65 97 09/17/16 12:00 112 H 127 H 22 97 09/17/16 11:50 105 H 23 99 09/17/16 11:40 58 L 23 98 09/17/16 11:30 55 L 19 98 09/17/16 11:27 0 L Intake and Output 09/17/16 09/18/16 09/18/16 22:59 06:59 14:59 Intake Total 200 250 Output Total 250 600 Balance -50 -600 250 Intake: Oral 200 250 Output: Urine 250 600 Other: Voiding Method Indwelling Catheter Indwelling Catheter Indwelling Catheter Weight 156.4 kg Head exam was generally normal. There was no scleral icterus or corneal arcus. Mucous membranes were moist. Neck is short and supple and there is significant crowding of posterior oropharynx. There is no goiter or neck masses. Lungs sounds are diminished in the strongest of expiratory phase of breathing and diffuse expiratory wheezes heard throughout the lung shepard bilaterally. The patient also has some crackles at lung bases bilaterally. Heart sounds are irregular positive S1-S2. No significant murmurs appreciated.Abdominal exam revealed normal bowel sounds. The abdomen was soft, non-tender, and without masses, organomegaly, or appreciable enlargement of the abdominal aorta. Extremities show evidence of chronic venous stasis. This +1 edema there is no cyanosis or clubbing at this point. Neurologically, the patient is awake and alert. Results - Laboratory Findings CBC and BMP: 09/17/16 05:26 09/18/16 05:47 PT/INR, D-dimer PT 53.1 sec (9.0-12.0) H 09/18/16 05:47 INR 5.3 (<1.1) H* 09/18/16 05:47 Abnormal lab findings: Abnormal Labs 09/16/16 09/17/16 09/17/16 21:07 05:26 05:26 WBC 11.4 H Hgb 12.9 L MCHC 30.9 L PT INR BUN Creatinine Glucose POC Glucose (mg/dL) Hemoglobin A1c Troponin I 0.097 H* 0.097 H* 09/17/16 09/17/16 09/17/16 05:26 05:26 08:15 WBC Hgb MCHC PT 78.9 H INR 7.6 H* BUN 34 H Creatinine 1.38 H Glucose 135 H POC Glucose (mg/dL) Hemoglobin A1c 7.1 H Troponin I 09/17/16 09/17/16 09/17/16 11:24 17:11 20:37 WBC Hgb MCHC PT INR BUN Creatinine Glucose POC Glucose (mg/dL) 165 H 178 H 133 H Hemoglobin A1c Troponin I 09/18/16 09/18/16 09/18/16 05:47 05:47 06:51 WBC Hgb MCHC PT 53.1 H INR 5.3 H* BUN 34 H Creatinine 1.29 H Glucose 123 H POC Glucose (mg/dL) 122 H Hemoglobin A1c Troponin I - Diagnostic Findings Chest x-ray: image reviewed Assessment and Plan Plan: Assessment 1 acute shortness of breath secondary to a COPD and CHF exacerbation. Chest x- ray she reveals significant pulmonary edema and the patient is responding nicely to IV diuretics. The patient was also and fluid overload with increased lower extremity edema which is improving with diuretics. Clinically is less short of breath compared to yesterday. He is also COPD exacerbation 2 COPD 3 CHF with an ejection fraction of 35-40% at baseline 4 coronary artery disease with previous history of coronary intervention and stenting. The patient has some limited troponin leak in cardiology is on the case 5 obesity 6 obstructive sleep apnea nontolerant to CPAP therapy 7 diabetes mellitus 8 chronic atrial fibrillation the patient's PT/INR is supratherapeutic at this point and currently he is off warfarin 9 hypertension 10 hyperlipidemia 11 remote history of DVT of the lower extremity 12 ReFlex sympathetic dystrophy 13 gout 14 chronic renal failure 15 osteoarthritis Plan We'll start the patient on diuretics. The patient is responding very nicely to Lasix. We will monitor the urine output. Monitor the clinical response. Continue monitoring the PT/INR and keep the patient off warfarin for now. Continue routine bronchodilators. No need for systemic steroids at this point. We'll monitor the chest x-ray we'll obtain a follow-up chest x-ray with the next 24-48 hours. Cardiology on the case in regards to CHF and troponin leak. Repeat echocardiogram will obviously be recommended. We'll continue to follow.
--- NOTE | 2016-09-18 11:28 | P.PN ---
Subjective Principal diagnosis: CHF This is a pleasant 60-year-old gentleman who sees Dr. Ayers as an outpatient with a past medical history significant for CAD and prior stenting, unknown left ventricular systolic function, congestive heart failure, chronic atrial fibrillation, as well as multiple comorbid conditions presented to the emergency room with exertional dyspnea. EKG revealed atrial fibrillation with diffuse nonspecific ST-T wave changes, cardiac enzymes came in to be slightly abnormal but not consistent with myocardial infarction. He was initiated on IV Lasix. Echo with Doppler study pending. He is diuresing on IV Lasix. INR today 5.3, creatinine 1.2. Objective - Vital Signs Vital signs: Vital Signs Temp 97.1 F L 09/18/16 08:00 Pulse 102 H 09/18/16 08:48 Resp 18 09/18/16 08:00 BP 88/63 09/18/16 08:00 Pulse Ox 95 09/18/16 08:00 Intake & Output 09/17/16 09/18/16 09/18/16 18:59 06:59 18:59 Intake Total 200 250 Output Total 700 850 Balance -700 -650 250 Weight 156.4 kg Intake: Oral 200 250 Output: Urine 700 850 Other: Voiding Method Indwelling Catheter Indwelling Catheter Indwelling Catheter - Exam PHYSICAL EXAMINATION: HEENT: Head is atraumatic, normocephalic. Pupils equal, round. Neck is supple. There is no elevated jugular venous pressure. HEART EXAMINATION: Heart S1 and S2 irregular irregular CHEST EXAMINATION: And's reveal scattered fine wheezing throughout with diminished air entry to bilateral bases. ABDOMEN: Soft, nontender. Bowel sounds are heard. No organomegaly noted. EXTREMITIES: 2+ peripheral pulses with 1+ evidence of peripheral edema and no calf tenderness noted. NEUROLOGIC patient is awake, alert and oriented -3. . - Labs CBC & Chem 7: 09/17/16 05:26 09/18/16 05:47 Labs: Abnormal Lab Results - Last 24 Hours (Table) 09/17/16 09/17/16 09/17/16 Range/Units 05:26 11:24 17:11 PT (9.0-12.0) sec INR (<1.1) BUN (9-20) mg/dL Creatinine (0.66-1.25) mg/dL Glucose (74-99) mg/dL POC Glucose (mg/dL) 165 H 178 H (75-99) mg/dL Hemoglobin A1c 7.1 H (4.2-6.1) % 09/17/16 09/18/16 09/18/16 Range/Units 20:37 05:47 05:47 PT 53.1 H (9.0-12.0) sec INR 5.3 H* (<1.1) BUN 34 H (9-20) mg/dL Creatinine 1.29 H (0.66-1.25) mg/dL Glucose 123 H (74-99) mg/dL POC Glucose (mg/dL) 133 H (75-99) mg/dL Hemoglobin A1c (4.2-6.1) % 09/18/16 Range/Units 06:51 PT (9.0-12.0) sec INR (<1.1) BUN (9-20) mg/dL Creatinine (0.66-1.25) mg/dL Glucose (74-99) mg/dL POC Glucose (mg/dL) 122 H (75-99) mg/dL Hemoglobin A1c (4.2-6.1) % Assessment and Plan (1) Systolic CHF, acute on chronic Status: Acute (2) Chronic a-fib Status: Acute (3) COPD (chronic obstructive pulmonary disease) Status: Acute (4) Diabetes Status: Acute (5) HTN (hypertension) Status: Acute (6) Hx of deep venous thrombosis Status: Acute (7) Sleep apnea Status: Acute (8) Lower extremity edema Status: Acute (9) Diabetes Status: Acute Plan: From cardiology's perspective, we will recommend to continue current dose of IV Lasix, continue to monitor intake and output, daily weights, daily lytes BUN and creatinine. Await results of echocardiogram with Doppler study. DNP note has been reviewed, I agree with a documented findings and plan of care. Patient was seen and examined.
[2016-09-18 11:51] VITALS: BMI 49.4
[2016-09-18 12:26] LABS: Glucose,Whole Blood 133 mg/dL (75-99)
[2016-09-18] MEDS: LOSARTAN 50 MG TAB PO SCH (12:38)
[2016-09-18] MEDS: LEVOFLOXACIN 500 MG TAB PO SCH (17:46)
[2016-09-18 20:55] LABS: Glucose,Whole Blood 160 mg/dL (75-99)
--- NOTE | 2016-09-18 21:40 | PN ---
DATE OF SERVICE: 09/18/2016 PRESENTING COMPLAINT: Short of breath. INTERVAL HISTORY: This is a patient presented with CHF exacerbation, A. fib with rapid ventricular rate still rate uncontrolled. The breathing a shade better. Patient getting diuresed. Sitting up in a chair. Short of breath is still present. Review of systems done for constitutional, cardiovascular, GI problems relevant findings as above. Current medications are reviewed that include IV Lasix. On examination, temperature 97.1, pulse 122, respirations 20, blood pressure 110/89, pulse ox 99% on 3 liters. GENERAL APPEARANCE: Sitting up, not in distress. EYES: Pupils equal. Conjunctivae normal. NECK: JVD unable to assess. Respiratory effort increased. LUNGS: Diminished breath sounds. CARDIOVASCULAR: Heart sounds muffled. Edema present. ABDOMEN: Distended, soft. Liver and spleen not palpable. PSYCHIATRY: Awake, answering questions. Tired -appearing. EXTREMITIES: Chronic skin changes. INVESTIGATIONS: Telemetry shows A. fib with a rapid ventricular rate, INR 5.3, BUN 34, creatinine 1.29. ASSESSMENT: 1. Acute on chronic congestive heart failure exacerbation from systolic and diastolic dysfunction; ejection fraction of 45 to 50% ( ) underlying coronary artery disease. 2. Paroxysmal atrial fibrillation with rapid ventricular rate uncontrolled. 3. Acute chronic obstructive pulmonary disease exacerbation in an active smoker. 4. Chronic nicotine dependence. Patient is an active cigarette smoker. 5. Diabetes mellitus type 2, 6. Gastroesophageal reflux disease. 7. Hyperlipidemia. 8. Essential hypertension. 9. Sleep apnea, does not use CPAP machine. 10. Primary osteoarthritis in multiple joints, bilateral. 11. Chronic reflex sympathetic dystrophy with chronic pain. 12. Peripheral neuropathy secondary to diabetes mellitus type 2. 13. Coronary artery disease with prior history of stent. 14. Coumadin monitoring with Coumadin toxicity. No evidence of bleeding. 15. Troponin leak in the setting of renal failure and hemodynamic mismatch. 16. Possible right-sided pneumonia. PLAN: Continue current medication and treatment plan. Coumadin continues to be held. Told the patient to restrict his fluid intake. Follow.
[2016-09-18 23:46] VITALS: RESP 18
[2016-09-19] MEDS: FUROSEMIDE 10 MG/ML 4 ML VIAL IV SCH ×2 (06:25→16:50)
[2016-09-19] MEDS: INSULIN LISPRO (humaLOG) 300 UNIT/3 ML VIAL SQ SCH ×4 (06:30→21:14)
[2016-09-19 06:31] LABS: Glucose,Whole Blood 138 mg/dL (75-99)
[2016-09-19] MEDS: PANTOPRAZOLE 40 MG TABLET PO SCH (06:31)
[2016-09-19] MEDS: CARVEDILOL 6.25 MG TAB PO SCH ×2 (06:31→16:51)
[2016-09-19 06:33] LABS: INR 3.1 (<1.1); Prothrombin Time 29.9 sec (9.0-12.0)
[2016-09-19 06:36] LABS: Anion Gap 11 mmol/L; Blood Urea Nitrogen 39 mg/dL (9-20); Calcium 9.1 mg/dL (8.4-10.2); Carbon Dioxide 30 mmol/L (22-30); Chloride 99 mmol/L (98-107); Glucose 160 mg/dL (74-99); Non-African American GFR(MDRD) 52 (>60 ml/min/1.73 sqM); Potassium 4.1 mmol/L (3.5-5.1); Sodium 140 mmol/L (137-145)
[2016-09-19] MEDS: IPRATROPIUM-ALBUTEROL 3 ML NEB INHALATION SCH ×4 (07:07→19:18)
[2016-09-19] MEDS: SYMBICORT 160-4.5 MCG INHALER INHALATION SCH ×2 (07:16→19:18)
[2016-09-19] MEDS: ATORVASTATIN 40 MG TAB PO SCH (09:26)
[2016-09-19] MEDS: LINAGLIPTIN 5 MG TABLET PO SCH (09:27)
[2016-09-19] MEDS: DULoxetine HCL 60 MG CAPSULE.DR PO SCH ×2 (09:27→20:07)
[2016-09-19] MEDS: LOSARTAN 50 MG TAB PO SCH (09:27)
[2016-09-19] MEDS: MAGNESIUM OXIDE 400 MG TAB PO SCH (09:28)
--- NOTE | 2016-09-19 11:01 | ECHOF ---
Referral Reason:chf MEASUREMENTS -------- HEIGHT: 152.4 cm WEIGHT: 156.0 kg BP: RVIDd: 4.1 cm (< 3.3) IVSd: 0.8 cm (0.6 - 1.1) LVIDd: 6.0 cm (3.9 - 5.3) LVPWd: 1.3 cm (0.6 - 1.1) IVSs: 0.9 cm LVIDs: 4.9 cm LVPWs: 1.6 cm Ao Diam: 3.1 cm (2.0 - 3.7) AV Cusp: 2.0 cm (1.5 - 2.6) LA Diam: 5.6 cm (2.7 - 3.8) MV EXCURSION: 12.408 mm (> 18.000) MV EF SLOPE: 47 mm/s (70 - 150) EPSS: 1.4 cm RAP: 5.00 mmHg RVSP: 69.62 mmHg FINDINGS -------- Sinus rhythm. Morbid Obesity This was a techncally difficult study with suboptimal views, , Definity utilized for enhancement of images. Left ventricular wall thickness is normal. There is severe global hypokinesis of LV . Overall left ventricular systolic function is severely impaired with, an EF between 20 - 25 %. The right ventricle is moderate to severely enlarged. The right ventricular septal wall is flattened in systole which is consistent with right ventricular pressure overload. The right atrial size is normal. 1.5MG OF DEFINITY UTLIZED: 2 OR MORE WALL SEGMENTS NOT VISUALIZED. The aortic valve was not well visualized. Mild mitral annular calcification present. Mild mitral regurgitation is present. Mild tricuspid regurgitation present. There is moderate to severe pulmonary hypertension. The right ventricular systolic pressure, as measured by Doppler, is 69.62mmHg. The pulmonic valve was not well visualized. The aortic root size is normal. There is no pericardial effusion. CONCLUSIONS -------- 1. Morbid Obesity 2. Mild mitral annular calcification present. 3. Mild mitral regurgitation is present. 4. Mild tricuspid regurgitation present. 5. There is moderate to severe pulmonary hypertension. 6. The right ventricular systolic pressure, as measured by Doppler, is 69.62mmHg. 7. The pulmonic valve was not well visualized. 8. This was a techncally difficult study with suboptimal views, , Definity utilized for enhancement of images. 9. Left ventricular wall thickness is normal. 10. There is severe global hypokinesis of LV . 11. Overall left ventricular systolic function is severely impaired with, an EF between 20 - 25 %. 12. The right ventricle is moderate to severely enlarged. 13. The right ventricular septal wall is flattened in systole which is consistent with right ventricular pressure overload. 14. 1.5MG OF DEFINITY UTLIZED: 2 OR MORE WALL SEGMENTS NOT VISUALIZED. 15. The aortic valve was not well visualized. BATCH MAKER: Cori Willis RDCS
[2016-09-19] MEDS: HYDROcodone/APAP 5-325MG 1 EACH TAB PO PRN ×2 (11:20→15:05)
[2016-09-19 11:54] LABS: Glucose,Whole Blood 166 mg/dL (75-99)
[2016-09-19] MEDS: LEVOFLOXACIN 500 MG TAB PO SCH (15:02)
--- NOTE | 2016-09-19 16:08 | P.PN ---
Subjective Principal diagnosis: CHF This is a pleasant 60-year-old gentleman who sees Dr. Ayers as an outpatient with a past medical history significant for CAD and prior stenting, congestive heart failure, chronic atrial fibrillation, as well as multiple comorbid conditions presented to the emergency room with exertional dyspnea. EKG revealed atrial fibrillation with diffuse nonspecific ST-T wave changes, cardiac enzymes came in to be slightly abnormal but not consistent with myocardial infarction. He was initiated on IV Lasix. Patient continues to diurese well on IV Lasix. He had an echocardiogram with Doppler study performed in February of last year which revealed an ejection fraction of 40-45%. Echocardiogram with Doppler study was performed this admission which revealed an ejection fraction of 20-25%. We spoke with Dr. Ayers who the patient follows with in the office, regarding possible cardiac catheterization. He will be in to speak with the patient and the decision will be made whether to proceed with that on this admission or down the road. At this time we will continue to diurese the patient for heart failure. Objective - Vital Signs Vital signs: Vital Signs Temp 96.9 F L 09/19/16 15:18 Pulse 96 09/19/16 15:40 Resp 18 09/19/16 15:18 BP 97/58 09/19/16 15:18 Pulse Ox 95 09/19/16 15:18 Intake & Output 09/18/16 09/19/16 09/19/16 18:59 06:59 18:59 Intake Total 430 480 Output Total 400 1100 750 Balance 30 -620 -750 Weight 156.4 kg 157.4 kg Intake: Oral 430 480 Output: Urine 400 1100 750 Other: Voiding Method Indwelling Catheter Indwelling Catheter Indwelling Catheter # Bowel Movements 1 1 - Exam PHYSICAL EXAMINATION: HEENT: Head is atraumatic, normocephalic. Pupils equal, round. Neck is supple. There is no elevated jugular venous pressure. HEART EXAMINATION: Heart S1 and S2 irregular irregular CHEST EXAMINATION: lungs reveal scattered fine wheezing throughout with diminished air entry to bilateral bases. ABDOMEN: Soft, nontender. Bowel sounds are heard. No organomegaly noted. EXTREMITIES: 2+ peripheral pulses with 1+ evidence of peripheral edema and no calf tenderness noted. NEUROLOGIC patient is awake, alert and oriented -3. . - Labs CBC & Chem 7: 09/17/16 05:26 09/19/16 05:36 Labs: Abnormal Lab Results - Last 24 Hours (Table) 09/18/16 09/19/16 09/19/16 Range/Units 20:53 05:36 05:36 PT 29.9 H (9.0-12.0) sec BUN 39 H (9-20) mg/dL Creatinine 1.40 H (0.66-1.25) mg/dL Glucose 160 H (74-99) mg/dL POC Glucose (mg/dL) 160 H (75-99) mg/dL 09/19/16 09/19/16 Range/Units 06:30 11:39 PT (9.0-12.0) sec BUN (9-20) mg/dL Creatinine (0.66-1.25) mg/dL Glucose (74-99) mg/dL POC Glucose (mg/dL) 138 H 166 H (75-99) mg/dL Assessment and Plan (1) Systolic CHF, acute on chronic Status: Acute (2) Chronic a-fib Status: Acute (3) COPD (chronic obstructive pulmonary disease) Status: Acute (4) Diabetes Status: Acute (5) HTN (hypertension) Status: Acute (6) Hx of deep venous thrombosis Status: Acute (7) Sleep apnea Status: Acute (8) Lower extremity edema Status: Acute (9) Diabetes Status: Acute Plan: From cardiology's perspective, we will recommend to continue current dose of IV Lasix, continue to monitor intake and output, daily weights, daily lytes BUN and creatinine. We will hold the Coumadin tonight. In are 3.1. Creatinine 1.4. Dr. Ayers will be in to discuss plan of care further with the patient this evening. DNP note has been reviewed, I agree with a documented findings and plan of care. Patient was seen and examined.
--- NOTE | 2016-09-19 16:23 | CDI ---
In responding to this query, please exercise your independent professional judgment. The [facility] Coding Staff and Clinical Documentation Specialists appreciate your assistance in clarifying documentation, maintaining compliance with coding guidelines, accurately documenting patients condition and capturing severity of illness. The fact that a question is asked does not imply that any particular answer is desired or expected. Communication forms are a method of clarifying documentation and are not made part of the Legal Health Record. Thank you in advance for your clarification. Last Revision, July 2015 Lalo Larsen [address] [facility] [place] [address] Documentation Clarification Form Date: 09/19/2016 4:15:00 PM From: Peggy Colon Admit Date: 09/16/2016 5:16:00 PM Patient Name: Jovani Jorge Visit Number: [id number] Dr. Josue Jensen Patient presents with a BUN/CR/GFR of: 30/1.31/56 History/Risk Factors: Hypertension with Hypertensive Cardiovascular Disease Diabetes Mellitus type 2 COPD CHF Sleep Apnea Atrial Fibrillation IV Lasix Clinical Indicators: In the progress note dated 09/18/2016 you documented 'troponin leak in setting of renal failure' See presentation labs noted above Labs on 09/19: BUN 39, Cr 1.40, GFR 52 Treatment: Consults: Cardiology, Pulmonary IV fluids not given - patient has CHF exacerbation In order to capture the severity of condition, please clarify if the condition signifies: Acute renal failure Acute on chronic renal failure Chronic kidney disease (CKD) and please stage Stage 1 GFR >90 Stage 2 GFR 60-89 Stage 3 GFR 30-59 Stage 4 GFR 15-29 Unable to determine Other, specify Please document in your progress notes and discharge summary in order to capture severity of illness and risk of mortality. Include clinical findings that support your diagnosis. FYI: Press F11 to launch patient chart. Place X here if this finding has no clinical significance, is not applicable or if you are not able to provide any additional documentation. MTDD
--- NOTE | 2016-09-19 16:28 | P.PN ---
Subjective This is a pleasant 60-year-old gentleman with a past medical history significant for CAD and prior stenting, COPD, congestive heart failure which has been essentially diastolic dysfunction and based on the previous echocardiogram the patient has an ejection fraction of 35-40%, chronic atrial fibrillation, as well as multiple comorbid conditions presented to the emergency room with exertional dyspnea. He describes progressive exertional dyspnea started about 4 days ago. Also he describes orthopnea. The patient gained significant amount of weight over the last 4 days and he noticed abdominal distention and severe bilateral lower extremities edema. He also had a congested cough with some limited amount of sputum production. No chest pain. No fever. No chills. No change in mental status. The patient presented to the hospital where he was found to have acute CHF and acute COPD exacerbation. His chest x-ray showed pulmonary edema. Overnight he was started on IV diuretics and responded nicely to Lasix and this morning is feeling much more comfortable. He is on oxygen at 2 L/m nasal cannula. ProBNP was in the 8000 range. The patient had a limited troponin leak and cardiology will be also evaluating this patient. Note that the patient's was in the hospital in February 2016 for complications of acute hypoxic and hypercapnic respiratory failure. Back then he briefly went into third-degree AV block from which she recovered. He is on oxygen at home at 2 L. He has been diagnosed having obstructive sleep apnea. He has been able to tolerate the treatment and as such she has not been receiving any treatment regarding his JOSELYN. His other comorbid conditions include hypertension, diabetes mellitus, remote history of DVT, hyperlipidemia and chronic renal failure. On 09/19/2016 the patient is being seen in follow-up. The patient is feeling better compared to yesterday. He is less short of breath. He is diuresing well and he is in a negative fluid balance. Cough congestion and wheezing is also improved and subsided. He is tolerating the diuretics well. No hypotension. No chest pain. He is off Coumadin and his INR is on the decline. Objective - Vital Signs Vital signs: Vital Signs Temp 96.9 F L 09/19/16 15:18 Pulse 96 09/19/16 15:40 Resp 18 09/19/16 15:18 BP 97/58 09/19/16 15:18 Pulse Ox 95 09/19/16 15:18 Intake & Output 09/18/16 09/19/16 09/19/16 18:59 06:59 18:59 Intake Total 430 480 Output Total 400 1100 750 Balance 30 620 -750 Weight 156.4 kg 157.4 kg Intake: Oral 430 480 Output: Urine 400 1100 750 Other: Voiding Method Indwelling Catheter Indwelling Catheter Indwelling Catheter # Bowel Movements 1 1 - Exam Head exam was generally normal. There was no scleral icterus or corneal arcus. Mucous membranes were moist. Neck is short and supple and there is significant crowding of posterior oropharynx. There is no goiter or neck masses. Lungs sounds are diminished in the strongest of expiratory phase of breathing and diffuse expiratory wheezes heard throughout the lung shepard bilaterally. The patient also has some crackles at lung bases bilaterally. Heart sounds are irregular positive S1-S2. No significant murmurs appreciated.Abdominal exam revealed normal bowel sounds. The abdomen was soft, non-tender, and without masses, organomegaly, or appreciable enlargement of the abdominal aorta. Extremities show evidence of chronic venous stasis. This +1 edema there is no cyanosis or clubbing at this point. Neurologically, the patient is awake and alert. - Labs CBC & Chem 7: 09/17/16 05:26 09/19/16 05:36 Labs: Abnormal Lab Results - Last 24 Hours (Table) 09/18/16 09/19/16 09/19/16 Range/Units 20:53 05:36 05:36 PT 29.9 H (9.0-12.0) sec BUN 39 H (9-20) mg/dL Creatinine 1.40 H (0.66-1.25) mg/dL Glucose 160 H (74-99) mg/dL POC Glucose (mg/dL) 160 H (75-99) mg/dL 09/19/16 09/19/16 Range/Units 06:30 11:39 PT (9.0-12.0) sec BUN (9-20) mg/dL Creatinine (0.66-1.25) mg/dL Glucose (74-99) mg/dL POC Glucose (mg/dL) 138 H 166 H (75-99) mg/dL Assessment and Plan Plan: Assessment 1 acute shortness of breath secondary to a COPD and CHF exacerbation. Chest x- ray she reveals significant pulmonary edema and the patient is responding nicely to IV diuretics. The patient was also and fluid overload with increased lower extremity edema which is improving with diuretics. Clinically is less short of breath compared to yesterday. He is also COPD exacerbation On 09/19/2016, the patient is less short of breath compared to yesterday. We' ll continue same treatment of bronchodilators and diuretics. Warfarin is still on hold. The patient is tolerating diuretics well and his creatinine is stable at 1.4. 2 COPD 3 CHF with an ejection fraction of 35-40% at baseline 4 coronary artery disease with previous history of coronary intervention and stenting. The patient has some limited troponin leak in cardiology is on the case 5 obesity 6 obstructive sleep apnea nontolerant to CPAP therapy 7 diabetes mellitus 8 chronic atrial fibrillation the patient's PT/INR is supratherapeutic at this point and currently he is off warfarin 9 hypertension 10 hyperlipidemia 11 remote history of DVT of the lower extremity 12 ReFlex sympathetic dystrophy 13 gout 14 chronic renal failure 15 osteoarthritis Plan Continue Lasix 40 mg IV every 12 hours. Monitor renal function. Monitor electrolytes. Continue bronchodilators. Smoking cessation counseling was again done. Repeat PT/INR in the morning. We'll continue to follow.
[2016-09-19 17:01] LABS: Glucose,Whole Blood 175 mg/dL (75-99)
[2016-09-19] MEDS ORDERED: WARFARIN 3 MG TAB PO SCH (18:00)
[2016-09-19 20:36] LABS: Glucose,Whole Blood 150 mg/dL (75-99)
[2016-09-20] MEDS: HYDROcodone/APAP 5-325MG 1 EACH TAB PO PRN ×3 (00:52→17:32)
[2016-09-20] MEDS: FUROSEMIDE 10 MG/ML 4 ML VIAL IV SCH ×3 (05:52→20:17)
[2016-09-20 06:15] LABS: INR 2.8 (<1.1); Prothrombin Time 26.9 sec (9.0-12.0)
[2016-09-20 06:22] LABS: Glucose,Whole Blood 136 mg/dL (75-99)
[2016-09-20] MEDS: INSULIN LISPRO (humaLOG) 300 UNIT/3 ML VIAL SQ SCH ×4 (06:49→21:53)
[2016-09-20] MEDS: PANTOPRAZOLE 40 MG TABLET PO SCH (06:49)
[2016-09-20] MEDS: CARVEDILOL 6.25 MG TAB PO SCH ×2 (06:49→22:15)
[2016-09-20] MEDS: IPRATROPIUM-ALBUTEROL 3 ML NEB INHALATION SCH ×4 (07:26→19:25)
[2016-09-20] MEDS: SYMBICORT 160-4.5 MCG INHALER INHALATION SCH ×2 (07:26→19:25)
--- NOTE | 2016-09-20 08:15 | PN ---
DATE OF SERVICE: 09/19/2016 PRESENTING COMPLAINT: Short of breath. INTERVAL HISTORY: The patient with CHF exacerbation, A. fib, sitting up in a chair, short of breath, edema still present. Review of systems done for constitutional, cardiovascular, GI, pulmonary; asthma; relevant findings as above. Current medications reviewed that include IV Lasix. On examination, temperature 96.9, pulse 96, respirations 18, blood pressure 97/58, pulse ox 95% on 3 L. GENERAL APPEARANCE: Sitting up in a chair, tired appearing. EYES: Pupils equal. Conjunctivae normal. HEENT: External appearance of nose and ears normal. Oral cavity normal. NECK: JVD unable to assess. Mass not palpable. RESPIRATORY: Effort increased. LUNGS: Diminished breath sounds. CARDIOVASCULAR: Heart sounds muffled. Edema present. ABDOMEN: Soft, nontender. Liver and spleen not palpable. PSYCHIATRY: Alert and oriented x3. Mood and affect normal. INVESTIGATIONS: BUN 39, creatinine 1.40. ASSESSMENT: 1. Acute on chronic congestive heart failure exacerbation from systolic and diastolic dysfunction; ejection fraction 45% to 50% from underlying coronary artery disease. 2. Paroxysmal atrial fibrillation with rapid ventricular rate. 3. Acute chronic obstructive pulmonary disease exacerbation in an active smoker. 4. Chronic nicotine dependence. Patient is an active cigarette smoker. 5. Diabetes mellitus type 2. 6. Gastroesophageal reflux disease. 7. Hyperlipidemia. 8. Essential hypertension. 9. Sleep apnea, does not use CPAP machine. 10. Primary osteoarthritis of multiple joints, bilateral. 11. Chronic reflex sympathetic dystrophy with chronic pain. 12. Peripheral neuropathy secondary to diabetes mellitus type 2. 13. Coronary artery disease with prior history of stent. 14. Coumadin monitoring with Coumadin toxicity. 15. Possible right-sided pneumonia. 16. Troponin leak in the setting of renal failure and hemodynamic mismatch. PLAN: Continued current medication and treatment plan, supportive care. Clinically patient is slowly improving, but still seems to have a while to go. Follow with Cardiology.
[2016-09-20] MEDS: LINAGLIPTIN 5 MG TABLET PO SCH (08:44)
[2016-09-20] MEDS: DULoxetine HCL 60 MG CAPSULE.DR PO SCH ×2 (08:44→21:53)
[2016-09-20] MEDS: LOSARTAN 50 MG TAB PO SCH (08:44)
[2016-09-20] MEDS: MAGNESIUM OXIDE 400 MG TAB PO SCH (08:44)
[2016-09-20] MEDS: NICOTINE 21MG/24HR PATCH TRANSDERM SCH (08:44)
[2016-09-20] MEDS: ATORVASTATIN 40 MG TAB PO SCH (08:44)
[2016-09-20 11:47] LABS: Glucose,Whole Blood 139 mg/dL (75-99)
--- NOTE | 2016-09-20 12:58 | P.PN ---
Progress Note - Text This is a pleasant 60-year-old gentleman who sees Dr. Ayers as an outpatient with a known history of congestive heart failure, chronic atrial fibrillation, COPD, diabetes and hypertension who was admitted to the hospital was acute exacerbation of congestive heart failure. The patient is known to have a baseline left ventricular ejection fraction of 45 %. During this admission, he underwent an echocardiogram which showed an EF of 25-30% which seems to be severely impaired compared to previous echo. The patient was going to have a heart catheterization today by Dr. Ayers but that is going to be done as an outpatient. Clinically, he is feeding well and the shortness of breath seems to be better. He's to have bilateral lower extremities edema but he has baseline edema and also he had chronic skin changes. Hemodynamically he continues to be in A. fib with a slightly uncontrolled heart rate. I recommended keeping the patient on Lasix for additional 24 hours. I added digoxin to the current medical treatment. The pressure has been marginally low.
--- NOTE | 2016-09-20 15:03 | P.PN ---
Subjective This is a pleasant 60-year-old gentleman with a past medical history significant for CAD and prior stenting, COPD, congestive heart failure which has been essentially diastolic dysfunction and based on the previous echocardiogram the patient has an ejection fraction of 35-40%, chronic atrial fibrillation, as well as multiple comorbid conditions presented to the emergency room with exertional dyspnea. He describes progressive exertional dyspnea started about 4 days ago. Also he describes orthopnea. The patient gained significant amount of weight over the last 4 days and he noticed abdominal distention and severe bilateral lower extremities edema. He also had a congested cough with some limited amount of sputum production. No chest pain. No fever. No chills. No change in mental status. The patient presented to the hospital where he was found to have acute CHF and acute COPD exacerbation. His chest x-ray showed pulmonary edema. Overnight he was started on IV diuretics and responded nicely to Lasix and this morning is feeling much more comfortable. He is on oxygen at 2 L/m nasal cannula. ProBNP was in the 8000 range. The patient had a limited troponin leak and cardiology will be also evaluating this patient. Note that the patient's was in the hospital in February 2016 for complications of acute hypoxic and hypercapnic respiratory failure. Back then he briefly went into third-degree AV block from which she recovered. He is on oxygen at home at 2 L. He has been diagnosed having obstructive sleep apnea. He has been able to tolerate the treatment and as such she has not been receiving any treatment regarding his JOSELYN. His other comorbid conditions include hypertension, diabetes mellitus, remote history of DVT, hyperlipidemia and chronic renal failure. On 09/19/2016 the patient is being seen in follow-up. The patient is feeling better compared to yesterday. He is less short of breath. He is diuresing well and he is in a negative fluid balance. Cough congestion and wheezing is also improved and subsided. He is tolerating the diuretics well. No hypotension. No chest pain. He is off Coumadin and his INR is on the decline. On 09/20/2016, the patient is not having any major stroke difficulties. He has diuresed adequately. He is PT/INR has normalized. Renal function stable with a creatinine of 1.4. No chest pain. No other significant events overnight. Discharge planning is in progress . The patient can be potentially discharged home today. Objective - Vital Signs Vital signs: Vital Signs Temp 96.7 F L 01/13/17 08:00 Pulse 104 H 09/20/16 11:16 Resp 18 09/20/16 04:00 BP 105/58 09/20/16 08:00 Pulse Ox 94 L 09/20/16 08:00 Intake & Output 09/19/16 09/20/16 09/20/16 18:59 06:59 18:59 Intake Total 240 1140 420 Output Total 750 1770 300 Balance -510 -630 120 Weight 157.9 kg Intake: Oral 240 1140 420 Output: Urine 750 1770 300 Other: Voiding Method Indwelling Catheter Indwelling Catheter Indwelling Catheter # Bowel Movements 1 - Exam Head exam was generally normal. There was no scleral icterus or corneal arcus. Mucous membranes were moist. Neck is short and supple and there is significant crowding of posterior oropharynx. There is no goiter or neck masses. Examination of lungs shows marked improvement in the extremity wheezes were heard bilaterally. Minimal crackles are still present in lung bases.. The patient also has some crackles at lung bases bilaterally. Heart sounds are irregular positive S1-S2. No significant murmurs appreciated.Abdominal exam revealed normal bowel sounds. The abdomen was soft, non-tender, and without masses, organomegaly, or appreciable enlargement of the abdominal aorta. Extremities show evidence of chronic venous stasis. This +1 edema there is no cyanosis or clubbing at this point. Neurologically, the patient is awake and alert. - Labs CBC & Chem 7: 09/17/16 05:26 09/19/16 05:36 Labs: Abnormal Lab Results - Last 24 Hours (Table) 09/19/16 09/19/16 09/20/16 Range/Units 16:47 20:34 05:08 PT 26.9 H (9.0-12.0) sec POC Glucose (mg/dL) 175 H 150 H (75-99) mg/dL 09/20/16 09/20/16 Range/Units 06:21 11:28 PT (9.0-12.0) sec POC Glucose (mg/dL) 136 H 139 H (75-99) mg/dL Assessment and Plan Plan: Assessment 1 acute shortness of breath secondary to a COPD and CHF exacerbation. Chest x- ray she reveals significant pulmonary edema and the patient is responding nicely to IV diuretics. The patient was also and fluid overload with increased lower extremity edema which is improving with diuretics. Clinically is less short of breath compared to yesterday. He is also COPD exacerbation On 09/19/2016, the patient is less short of breath compared to yesterday. We' ll continue same treatment of bronchodilators and diuretics. Warfarin is still on hold. The patient is tolerating diuretics well and his creatinine is stable at 1.4. On 09/20/2016, the patient is quite stable without any major stroke difficulties. He has been diuresed IV Lasix 40 mg IV push every 12 hours. His renal function remains stable. He is a negative fluid balance. He has no major edema in lower extremities. He is obviously short of breath. 2 COPD 3 CHF with an ejection fraction of 35-40% at baseline 4 coronary artery disease with previous history of coronary intervention and stenting. The patient has some limited troponin leak in cardiology is on the case 5 obesity 6 obstructive sleep apnea nontolerant to CPAP therapy 7 diabetes mellitus 8 chronic atrial fibrillation the patient's PT/INR is supratherapeutic at this point and currently he is off warfarin 9 hypertension 10 hyperlipidemia 11 remote history of DVT of the lower extremity 12 ReFlex sympathetic dystrophy 13 gout 14 chronic renal failure 15 osteoarthritis Plan Switch to Lasix to oral. Continue bronchodilators. Discharge planning is in progress.
[2016-09-20] MEDS ORDERED: CARVEDILOL 12.5 MG TAB PO SCH (16:30)
[2016-09-20 17:04] LABS: Glucose,Whole Blood 145 mg/dL (75-99)
[2016-09-20] MEDS: CARVEDILOL 3.125 MG TAB PO SCH (17:28)
[2016-09-20] MEDS: LEVOFLOXACIN 500 MG TAB PO SCH (17:50)
[2016-09-20] MEDS ORDERED: WARFARIN 3 MG TAB PO SCH (18:00)
--- NOTE | 2016-09-20 18:12 | PN ---
DATE OF SERVICE: 09/20/2016 PRESENTING COMPLAINT: Short of breath. INTERVAL HISTORY: This patient was admitted with CHF exacerbation. He has been diuresing well. When patient did try to get up in the hallway, patient's heart rate went up to 130s. Edema is slowly coming down. Patient has been in good negative fluid balance. Review of systems done for constitutional, cardiovascular, GI, pulmonary; relevant findings as above. Current medications are reviewed and include IV Lasix, Coreg. On examination, temperature 96.9, pulse up to 130 with ambulation, blood pressure 105/58, pulse ox 94% on 3 L. GENERAL APPEARANCE: Sitting up in a chair. Not in distress. EYES: Pupils equal. Conjunctivae normal. NECK: JVD unable to assess. Mass not palpable. RESPIRATORY: Effort normal. LUNGS: Diminished breath sounds. CARDIOVASCULAR: Heart sounds muffled. Edema present. ABDOMEN: Soft, nontender. Liver and spleen not palpable. PSYCHIATRY: Alert and oriented x3. Mood and affect normal. INVESTIGATIONS: INR 2.8. Accu-Cheks are noted. ASSESSMENT: 1. Acute and chronic congestive heart failure exacerbation from systolic and diastolic dysfunction; ejection fraction 45% to 50%, from underlying coronary artery disease. 2. Paroxysmal atrial fibrillation with rapid ventricular rate, especially with exertion. 3. Acute chronic obstructive pulmonary disease exacerbation in an active smoker. 4. Chronic nicotine dependence. Patient is an active cigarette smoker. 5. Diabetes mellitus, type 2. 6. Gastroesophageal reflux disease. 7. Hyperlipidemia. 8. Essential hypertension. 9. Sleep apnea; does not use CPAP machine. 10. Primary osteoarthritis in multiple joints bilaterally. 11. Chronic reflex sympathetic dystrophy with chronic pain. 12. Peripheral neuropathy secondary to diabetes mellitus, type 2. 13. Coronary artery disease with prior history of stent. 14. Coumadin monitoring with Coumadin toxicity initially. 15. Right-sided pneumonia with clinical improvement. 16. Troponin leak in the setting of renal failure and hemodynamic mismatch. PLAN: Will increase patient's Lasix to 40 mg q.8 and put the patient on fluid restriction of 800 mL/day. We will also increase the Coreg cautiously to 6.25 three times a day.
[2016-09-20 21:26] LABS: Glucose,Whole Blood 135 mg/dL (75-99)
[2016-09-21] MEDS: FUROSEMIDE 10 MG/ML 4 ML VIAL IV SCH ×2 (00:01→09:02)
[2016-09-21 00:25] VITALS: TEMP 97.8
[2016-09-21] MEDS: HYDROcodone/APAP 5-325MG 1 EACH TAB PO PRN (05:50)
[2016-09-21 06:16] LABS: INR 2.3 (<1.1); Prothrombin Time 22.5 sec (9.0-12.0)
[2016-09-21 06:25] LABS: Glucose,Whole Blood 104 mg/dL (75-99)
[2016-09-21] MEDS: INSULIN LISPRO (humaLOG) 300 UNIT/3 ML VIAL SQ SCH ×2 (06:29→12:21)
[2016-09-21] MEDS: PANTOPRAZOLE 40 MG TABLET PO SCH (06:30)
--- NOTE | 2016-09-21 07:21 | XR ---
EXAMINATION TYPE: XR chest 2V DATE OF EXAM: 09/21/2016 6:17 AM COMPARISON: 09/16/2016 HISTORY: 60-year-old male CHF TECHNIQUE: Frontal and lateral views FINDINGS: The heart remains mildly enlarged. Diffuse interstitial opacities persist. No significant pleural eff usion seen. There is increased retrosternal clear space with flattening of the hemidiaphragms suggest ing underlying emphysema. IMPRESSION: Interstitial prominence suggests residual pulmonary vascular congestion. Possible underlying COPD.
[2016-09-21] MEDS ORDERED: DIGOXIN 125 MCG TAB PO SCH (09:00)
[2016-09-21] MEDS ORDERED: LOSARTAN 25 MG TAB PO SCH (09:00)
[2016-09-21] MEDS: CARVEDILOL 6.25 MG TAB PO SCH (09:02)
[2016-09-21] MEDS: NICOTINE 21MG/24HR PATCH TRANSDERM SCH (09:02)
[2016-09-21] MEDS: DULoxetine HCL 60 MG CAPSULE.DR PO SCH (09:02)
[2016-09-21] MEDS: ATORVASTATIN 40 MG TAB PO SCH (09:03)
[2016-09-21] MEDS: MAGNESIUM OXIDE 400 MG TAB PO SCH (09:03)
[2016-09-21] MEDS: LINAGLIPTIN 5 MG TABLET PO SCH (09:03)
[2016-09-21 10:09] VITALS: PULSE 114
[2016-09-21 10:41] LABS: Basophils # (A) 0.1 k/uL (0-0.2); Basophils % (A) 1 %; CH 28.5; CHCM 30.4; Eosinophils # (A) 0.2 k/uL (0-0.7); Eosinophils % (A) 2 %; HCT 36.4 % (39.0-53.0); HDW 2.85; HGB 11.2 gm/dL (13.0-17.5); Hypochromasia Marked; Luc # (Auto) 0.14; Luc % (Auto) 2; Lymphocytes # (A) 1.3 k/uL (1.0-4.8); Lymphocytes % (A) 18 %; MCHC 30.8 g/dL (31.0-37.0); Mean Platelet Volume 7.9; Monocytes # (A) 0.7 k/uL (0-1.0); Monocytes % (A) 9 %; Neutrophils # (A) 5.1 k/uL (1.3-7.7); Neutrophils % (A) 69 %; RBC 3.88 m/uL (4.30-5.90); RDW 14.8 % (11.5-15.5); WBC 7.5 k/uL (3.8-10.6)
[2016-09-21 10:49] LABS: Anion Gap 8 mmol/L; Blood Urea Nitrogen 43 mg/dL (9-20); Calcium 8.9 mg/dL (8.4-10.2); Carbon Dioxide 34 mmol/L (22-30); Chloride 98 mmol/L (98-107); Glucose 121 mg/dL (74-99); Non-African American GFR(MDRD) 52 (>60 ml/min/1.73 sqM); Potassium 4.1 mmol/L (3.5-5.1); Sodium 140 mmol/L (137-145)
--- NOTE | 2016-09-21 10:52 | P.PN ---
Subjective Principal diagnosis: CHF This is a pleasant 60-year-old gentleman who sees Dr. Ayers as an outpatient with a known history of congestive heart failure, chronic atrial fibrillation, COPD, diabetes and hypertension who was admitted to the hospital was acute exacerbation of congestive heart failure. The patient is known to have a baseline left ventricular ejection fraction of 45 %. During this admission, he underwent an echocardiogram which showed an EF of 25-30% which seems to be severely impaired compared to previous echo. The patient is going to have a heart catheterization today by Dr. Ayers but that is going to be done as an outpatient. Clinically, he is feeding well and the shortness of breath seems to be better. He still have bilateral lower extremities edema but he has baseline edema and also he had chronic skin changes. Hemodynamically he continues to be in A. fib with controlled heart rates. Yesterday I added digoxin to the current medical treatment. From the cardiovascular standpoint of view, the patient can be discharged home. I DC the Lasix IV and started the patient on Lasix by mouth for Objective - Vital Signs Vital signs: Vital Signs Temp 97.8 F 09/21/16 08:00 Pulse 114 H 09/21/16 08:00 Resp 18 09/21/16 08:00 BP 112/71 09/21/16 08:00 Pulse Ox 96 09/21/16 08:00 Intake & Output 09/20/16 09/21/16 09/21/16 18:59 06:59 18:59 Intake Total 420 100 180 Output Total 300 Balance 120 100 180 Weight 156 kg Intake: Oral 420 100 180 Output: Urine 300 Other: Voiding Method Indwelling Catheter Toilet # Voids 3 - Constitutional General appearance: Present: no acute distress - Labs CBC & Chem 7: 09/21/16 05:32 09/19/16 05:36 Labs: Abnormal Lab Results - Last 24 Hours (Table) 09/20/16 09/20/16 09/20/16 Range/Units 11:28 16:48 21:04 RBC (4.30-5.90) m/uL Hgb (13.0-17.5) gm/dL Hct (39.0-53.0) % MCHC (31.0-37.0) g/dL PT (9.0-12.0) sec POC Glucose (mg/dL) 139 H 145 H 135 H (75-99) mg/dL 09/21/16 09/21/16 09/21/16 Range/Units 05:32 05:32 06:20 RBC 3.88 L (4.30-5.90) m/uL Hgb 11.2 L (13.0-17.5) gm/dL Hct 36.4 L (39.0-53.0) % MCHC 30.8 L (31.0-37.0) g/dL PT 22.5 H (9.0-12.0) sec POC Glucose (mg/dL) 104 H (75-99) mg/dL Assessment and Plan Plan: Assessment #1 acute exacerbation of congestive heart failure and known if it's systolic or diastolic at this point #2 chronic atrial fibrillation with relatively controlled heart rate #3 mildly abnormal cardiac enzymes does not reflect acute MN #4 known CAD with a prior stenting with unknown details at this point #5 supratherapeutic INR #6 morbid obesity Plan #1 DC Lasix IV and start Lasix by mouth #2 continue Coumadin for anticoagulation #3 the patient can be discharged home
[2016-09-21 11:30] LABS: Glucose,Whole Blood 135 mg/dL (75-99)
[2016-09-21 12:38] VITALS: BP 111/74
--- NOTE | 2016-09-21 12:50 | P.PN ---
Subjective This is a pleasant 60-year-old gentleman with a past medical history significant for CAD and prior stenting, COPD, congestive heart failure which has been essentially diastolic dysfunction and based on the previous echocardiogram the patient has an ejection fraction of 35-40%, chronic atrial fibrillation, as well as multiple comorbid conditions presented to the emergency room with exertional dyspnea. He describes progressive exertional dyspnea started about 4 days ago. Also he describes orthopnea. The patient gained significant amount of weight over the last 4 days and he noticed abdominal distention and severe bilateral lower extremities edema. He also had a congested cough with some limited amount of sputum production. No chest pain. No fever. No chills. No change in mental status. The patient presented to the hospital where he was found to have acute CHF and acute COPD exacerbation. His chest x-ray showed pulmonary edema. Overnight he was started on IV diuretics and responded nicely to Lasix and this morning is feeling much more comfortable. He is on oxygen at 2 L/m nasal cannula. ProBNP was in the 8000 range. The patient had a limited troponin leak and cardiology will be also evaluating this patient. Note that the patient's was in the hospital in February 2016 for complications of acute hypoxic and hypercapnic respiratory failure. Back then he briefly went into third-degree AV block from which she recovered. He is on oxygen at home at 2 L. He has been diagnosed having obstructive sleep apnea. He has been able to tolerate the treatment and as such she has not been receiving any treatment regarding his JOSELYN. His other comorbid conditions include hypertension, diabetes mellitus, remote history of DVT, hyperlipidemia and chronic renal failure. On 09/19/2016 the patient is being seen in follow-up. The patient is feeling better compared to yesterday. He is less short of breath. He is diuresing well and he is in a negative fluid balance. Cough congestion and wheezing is also improved and subsided. He is tolerating the diuretics well. No hypotension. No chest pain. He is off Coumadin and his INR is on the decline. On 09/20/2016, the patient is not having any major stroke difficulties. He has diuresed adequately. He is PT/INR has normalized. Renal function stable with a creatinine of 1.4. No chest pain. No other significant events overnight. Discharge planning is in progress . The patient can be potentially discharged home today. On 09/21/2016, the patient is still doing well. His emanating. No respiratory difficulties. No swelling lower extremities. He has chronic venous status is in his lower extremities bilaterally. PT/INR is therapeutic. No chest pain. No other respiratory difficulties for now. Discharge planning is in progress. Objective - Vital Signs Vital signs: Vital Signs Temp 97.8 F 09/21/16 08:00 Pulse 114 H 09/21/16 12:00 Resp 18 09/21/16 12:00 BP 111/74 09/21/16 12:00 Pulse Ox 95 09/21/16 12:00 Intake & Output 09/20/16 09/21/16 09/21/16 18:59 06:59 18:59 Intake Total 420 100 180 Output Total 300 Balance 120 100 180 Weight 156 kg Intake: Oral 420 100 180 Output: Urine 300 Other: Voiding Method Indwelling Catheter Toilet # Voids 3 - Exam Head exam was generally normal. There was no scleral icterus or corneal arcus. Mucous membranes were moist. Neck is short and supple and there is significant crowding of posterior oropharynx. There is no goiter or neck masses. Examination of lungs shows marked improvement in the extremity wheezes were heard bilaterally. Minimal crackles are still present in lung bases.. The patient also has some crackles at lung bases bilaterally. Heart sounds are irregular positive S1-S2. No significant murmurs appreciated.Abdominal exam revealed normal bowel sounds. The abdomen was soft, non-tender, and without masses, organomegaly, or appreciable enlargement of the abdominal aorta. Extremities show evidence of chronic venous stasis. This +1 edema there is no cyanosis or clubbing at this point. Neurologically, the patient is awake and alert. - Labs CBC & Chem 7: 09/21/16 05:32 09/21/16 05:32 Labs: Abnormal Lab Results - Last 24 Hours (Table) 09/20/16 09/20/16 09/21/16 Range/Units 16:48 21:04 05:32 RBC (4.30-5.90) m/uL Hgb (13.0-17.5) gm/dL Hct (39.0-53.0) % MCHC (31.0-37.0) g/dL PT 22.5 H (9.0-12.0) sec Carbon Dioxide (22-30) mmol/L BUN (9-20) mg/dL Creatinine (0.66-1.25) mg/dL Glucose (74-99) mg/dL POC Glucose (mg/dL) 145 H 135 H (75-99) mg/dL 09/21/16 09/21/16 09/21/16 Range/Units 05:32 05:32 06:20 RBC 3.88 L (4.30-5.90) m/uL Hgb 11.2 L (13.0-17.5) gm/dL Hct 36.4 L (39.0-53.0) % MCHC 30.8 L (31.0-37.0) g/dL PT (9.0-12.0) sec Carbon Dioxide 34 H (22-30) mmol/L BUN 43 H (9-20) mg/dL Creatinine 1.40 H (0.66-1.25) mg/dL Glucose 121 H (74-99) mg/dL POC Glucose (mg/dL) 104 H (75-99) mg/dL 09/21/16 Range/Units 11:29 RBC (4.30-5.90) m/uL Hgb (13.0-17.5) gm/dL Hct (39.0-53.0) % MCHC (31.0-37.0) g/dL PT (9.0-12.0) sec Carbon Dioxide (22-30) mmol/L BUN (9-20) mg/dL Creatinine (0.66-1.25) mg/dL Glucose (74-99) mg/dL POC Glucose (mg/dL) 135 H (75-99) mg/dL Assessment and Plan Plan: Assessment 1 acute shortness of breath secondary to a COPD and CHF exacerbation. Chest x- ray she reveals significant pulmonary edema and the patient is responding nicely to IV diuretics. The patient was also and fluid overload with increased lower extremity edema which is improving with diuretics. Clinically is less short of breath compared to yesterday. He is also COPD exacerbation On 09/19/2016, the patient is less short of breath compared to yesterday. We' ll continue same treatment of bronchodilators and diuretics. Warfarin is still on hold. The patient is tolerating diuretics well and his creatinine is stable at 1.4. On 09/20/2016, the patient is quite stable without any major stroke difficulties. He has been diuresed IV Lasix 40 mg IV push every 12 hours. His renal function remains stable. He is a negative fluid balance. He has no major edema in lower extremities. He is obviously short of breath. On 09/21/2016 the patient remains essentially stable awaiting discharge. 2 COPD 3 CHF with an ejection fraction of 35-40% at baseline 4 coronary artery disease with previous history of coronary intervention and stenting. The patient has some limited troponin leak in cardiology is on the case 5 obesity 6 obstructive sleep apnea nontolerant to CPAP therapy 7 diabetes mellitus 8 chronic atrial fibrillation the patient's PT/INR is supratherapeutic at this point and currently he is off warfarin 9 hypertension 10 hyperlipidemia 11 remote history of DVT of the lower extremity 12 ReFlex sympathetic dystrophy 13 gout 14 chronic renal failure 15 osteoarthritis Plan Condition is stable. The patient can be discharged from the pulmonary standpoint
[2016-09-21] MEDS: CARVEDILOL 3.125 MG TAB PO SCH (13:32)
[2016-09-21] MEDS ORDERED: FUROSEMIDE 40 MG TAB PO SCH (16:00)
--- NOTE | 2016-09-22 08:06 | DS ---
DATE OF ADMISSION: 09/16/2016 DATE OF DISCHARGE: 09/21/2016 FINAL DIAGNOSES: 1. Acute on chronic congestive heart failure exacerbation from systolic and diastolic dysfunction; ejection fraction 20 to 25% from underlying coronary artery disease. 2. Paroxysmal atrial fibrillation with rapid ventricular rate especially with exertion. 3. Acute chronic obstructive pulmonary disease exacerbation in an active smoker. 4. Chronic nicotine dependence. Patient is an active cigarette smoker. 5. Diabetes mellitus type 2. 6. Gastroesophageal reflux disease. 7. Hyperlipidemia. 8. Essential hypertension. 9. Sleep apnea does not use CPAP machine. 10. Primary osteoarthritis of multiple joints, bilaterally. 11. Chronic reflex sympathetic dystrophy with chronic pain. 12. Peripheral neuropathy, secondary to diabetes mellitus type 2. 13. Coronary artery disease with prior history of stent. 14. Coumadin monitoring with Coumadin toxicity. 15. Right-sided pneumonia with clinical improvement present at admission. 16. Troponin leak in the setting of renal failure and hemodynamic mismatch. HOSPITAL COURSE: This patient presented with CHF exacerbation, responded well with Lasix. ( ) at time of discharge. CONSULTATION: 1. Dr. Macias from Pulmonary. 2. Dr. Ramírez from Cardiology. 2-D echocardiogram showed EF of 20% to 25%. Doing much better at that time of discharge. Patient counseled about avoiding excessive fluid intake. DISCHARGE MEDICATIONS: 1. Lipitor 40 mg daily. 2. Symbicort 160/4.5, 2 puffs b.i.d. 3. Prilosec 20 mg p.o. with breakfast. 4. Cymbalta 60 mg b.i.d. 5. DuoNeb q.4 p.r.n. 6. Magnesium oxide 100 mg a day. 7. Nicotine patch. 8. Ventolin 2.5 nebulizer q.4 p.r.n. 9. Tradjenta 5 mg p.o. daily. 10. Centrum Silver 1 tablet p.o. daily. 11. Coreg 6.25 p.o. b.i.d. 12. Lasix 80 mg b.i.d. 13. Cozaar 25 mg b.i.d. 14. Coumadin 3 mg p.o. daily. LABS: BMP, INR in 3 days. Follow up with Cardiology one week, follow with Dr. Wills one week. Discharge planning more than 35 minutes. Care was discussed in detail with the patient. On examination: LUNGS: Decreased breath sounds. CARDIOVASCULAR: Heart sounds irregular. Edema present.
--- NOTE | 2016-10-04 18:03 | DS ---
DATE OF ADMISSION: 09/16/2016 DATE OF DISCHARGE: 09/21/2016 ADDENDUM to final diagnosis(es): FINAL DIAGNOSIS(ES): Possible chronic kidney disease, stage III from, from diabetic nephropathy and hypertensive nephrosclerosis.
== END 2016-09-21 13:57 | disposition home health service (06) | DRG 291 ==
LOC: EC 14:34 → 6SEL 17:16 → 6ICU 09-17 10:54 → 6SEL 09-17 22:47
PROVIDERS: ADMIT Hospitalist; ATTEND Hospitalist
DX: I13.0 Hypertensive heart and chronic kidney disease with heart failure and stage 1 through stage 4 chronic kidney disease, or unspecified chronic kidney disease (principal); I50.43 Acute on chronic combined systolic (congestive) and diastolic (congestive) heart failure; J18.9 Pneumonia, unspecified organism; I48.1 Persistent atrial fibrillation; J44.0 Chronic obstructive pulmonary disease with (acute) lower respiratory infection; G90.50 Complex regional pain syndrome I, unspecified; J44.1 Chronic obstructive pulmonary disease with (acute) exacerbation; E11.21 Type 2 diabetes mellitus with diabetic nephropathy; E11.42 Type 2 diabetes mellitus with diabetic polyneuropathy; E11.22 Type 2 diabetes mellitus with diabetic chronic kidney disease; N18.3 Chronic kidney disease, stage 3 (moderate); I48.0 Paroxysmal atrial fibrillation; E66.01 Morbid (severe) obesity due to excess calories; E78.5 Hyperlipidemia, unspecified; F17.210 Nicotine dependence, cigarettes, uncomplicated; G47.33 Obstructive sleep apnea (adult) (pediatric); I25.2 Old myocardial infarction; I48.2 Chronic atrial fibrillation; I87.8 Other specified disorders of veins; J45.909 Unspecified asthma, uncomplicated; K21.9 Gastro-esophageal reflux disease without esophagitis; M10.9 Gout, unspecified; M15.9 Polyosteoarthritis, unspecified; T45.511A Poisoning by anticoagulants, accidental (unintentional), initial encounter; I83.90 Asymptomatic varicose veins of unspecified lower extremity; F12.90 Cannabis use, unspecified, uncomplicated; Z68.42 Body mass index [BMI] 45.0-49.9, adult; Z79.01 Long term (current) use of anticoagulants; Z79.899 Other long term (current) drug therapy; Z95.5 Presence of coronary angioplasty implant and graft; Z88.0 Allergy status to penicillin; Z88.2 Allergy status to sulfonamides; Z91.030 Bee allergy status; Z82.49 Family history of ischemic heart disease and other diseases of the circulatory system
CPT/HCPCS: 36415; 71020; 80048; 80053; 82550; 82553; 83036; 83605; 83690; 83735; 83880; 84484; 85025; 85027; 85610; 85730; 87040; 93005; 93306; 93965; 93970; 94640; 96374; 96376; 99291